=== PATIENT | male | born 1965 | race Caucasian/White ===

== ENCOUNTER 2022-01-31 17:18 | Emergency (ER) | payer OTHER, MEDICAID ==
[~2022-01-31] VITALS: Ht 175.3 cm; Wt 75.0 kg
[~2022-01-31 17:18] MED LIST: ATEN25TA PO; GLIM4TAB PO; LOSA50TA3 PO; OMEP20CA15 PO; SITA50TA PO
[2022-01-31 21:14] LABS: BASOPHILS # (AUTO) 0.1 X10'3 (0-0.2); BASOPHILS % (AUTO) 0.6 % (0-1); EOSINOPHILS % (AUTO) 0.3 % (0-6); HEMATOCRIT 39.1 % (42.0-52.0); HEMOGLOBIN 13.4 g/dl (14.0-17.9); LYMPHOCYTES # (AUTO) 2.3 X10'3 (1.1-4.8); LYMPHOCYTES % (AUTO) 13.3 % (21-51); MEAN CORPUSCULAR HEMOGLOBIN 30.5 PG (27.0-31.0); MEAN CORPUSCULAR HGB CONC 34.3 g/dL (33.0-36.5); MEAN CORPUSCULAR VOLUME 88.9 FL (78-98); MEAN PLATELET VOLUME 6.6 FL (7.4-10.4); MONOCYTES # (AUTO) 1.2 X10'3 (0-0.9); MONOCYTES % (AUTO) 7.2 % (2-12); NEUTROPHILS # (AUTO) 13.4 X10'3 (1.8-7.7); NEUTROPHILS % (AUTO) 78.6 % (42-75); PLATELET COUNT 422 X10'3 (140-440); RED BLOOD COUNT 4.39 X10'6 (4.70-6.10); RED CELL DISTRIBUTION WIDTH 13.7 % (11.5-14.5); WHITE BLOOD COUNT 17.1 X10'3 (4.5-11.0)
[2022-01-31] MEDS ORDERED: HYDROcodone/acetaminophen 10/325mg tab PO ONE (21:25)
[2022-01-31 21:30] LABS: ALANINE AMINOTRANSFERASE 14 U/L (12-78); ALBUMIN 3.6 G/DL (3.4-5.0); ALBUMIN/GLOBULIN RATIO 0.9 (1.1-1.5); ALKALINE PHOSPHATASE 78 IU/L (46-116); ANION GAP 11 (8-16); ASPARTATE AMINO TRANSFERASE 10 U/L (10-37); BILIRUBIN,TOTAL 0.8 MG/DL (0.1-1.0); BLOOD UREA NITROGEN 14 MG/DL (7-18); BUN/CREATININE RATIO 21.5 (5.4-32.0); CALCIUM 8.4 MG/DL (8.5-10.1); CHLORIDE 102 MMOL/L (99-107); CREATININE 0.65 MG/DL (0.60-1.10); GLUCOSE 127 MG/DL (70-104); POTASSIUM 3.2 MMOL/L (3.5-5.1); SODIUM 138 MMOL/L (135-145); TOTAL PROTEIN 7.4 G/DL (6.4-8.2); eGFR > 90 ML/MIN
[2022-01-31] MEDS ORDERED: TETanus/Pertussis (Acell)/Diphther VAC/PF (Tdap-Adult) 0.5ml syringe IMVAC ONE (21:35)
[2022-01-31] MEDS ORDERED: potassium Cl 20 mEq SR tablet PO ONE (21:50)
[2022-01-31] MEDS ORDERED: cephalexin 500mg capsule PO ONE (23:35)
[2022-01-31] MEDS ORDERED: HYDR-3965 PO (23:43)
[2022-01-31] MEDS ORDERED: CEPH-268 PO (23:43)
[2022-02-01 00:05] VITALS: BP 116/70
== END 2022-02-01 00:08 | disposition home or self-care (01) ==
LOC: ER 17:18
DX: L89.323 Pressure ulcer of left buttock, stage 3 (principal); L89.313 Pressure ulcer of right buttock, stage 3; E78.6 Lipoprotein deficiency; Z88.8 Allergy status to other drugs, medicaments and biological substances; Z79.899 Other long term (current) drug therapy; Z98.890 Other specified postprocedural states
CPT/HCPCS: 36415; 80053; 85025; 90715; 99284; A6222; A6223

== ENCOUNTER 2022-02-05 20:20 | Inpatient (IN) | payer OTHER, MEDICAID ==
[~2022-02-05] VITALS: Ht 175.3 cm; Wt 75.0 kg
[2022-02-05 18:00] VITALS: BP 142/77
[~2022-02-05 20:20] MED LIST changes: +CEPH-268 PO
[2022-02-05 21:13] LABS: BASOPHILS # (AUTO) 0.1 X10'3 (0-0.2); BASOPHILS % (AUTO) 0.5 % (0-1); EOSINOPHILS % (AUTO) 0.1 % (0-6); HEMATOCRIT 39.5 % (42.0-52.0); HEMOGLOBIN 13.3 g/dl (14.0-17.9); LYMPHOCYTES # (AUTO) 1.5 X10'3 (1.1-4.8); LYMPHOCYTES % (AUTO) 8.1 % (21-51); MEAN CORPUSCULAR HEMOGLOBIN 29.5 PG (27.0-31.0); MEAN CORPUSCULAR HGB CONC 33.6 g/dL (33.0-36.5); MEAN CORPUSCULAR VOLUME 87.7 FL (78-98); MEAN PLATELET VOLUME 6.7 FL (7.4-10.4); MONOCYTES # (AUTO) 1.7 X10'3 (0-0.9); MONOCYTES % (AUTO) 9.1 % (2-12); NEUTROPHILS # (AUTO) 15.1 X10'3 (1.8-7.7); NEUTROPHILS % (AUTO) 82.2 % (42-75); PLATELET COUNT 501 X10'3 (140-440); RED BLOOD COUNT 4.51 X10'6 (4.70-6.10); RED CELL DISTRIBUTION WIDTH 13.8 % (11.5-14.5); WHITE BLOOD COUNT 18.4 X10'3 (4.5-11.0)
[2022-02-05] MEDS ORDERED: acetaminophen 325mg tablet PO ONE (21:25)
[2022-02-05 21:30] LABS: ALANINE AMINOTRANSFERASE 12 U/L (12-78); ALBUMIN 2.8 G/DL (3.4-5.0); ALBUMIN/GLOBULIN RATIO 0.6 (1.1-1.5); ALKALINE PHOSPHATASE 95 IU/L (46-116); ANION GAP 14 (8-16); ASPARTATE AMINO TRANSFERASE 10 U/L (10-37); BILIRUBIN,TOTAL 0.9 MG/DL (0.1-1.0); BLOOD UREA NITROGEN 12 MG/DL (7-18); BUN/CREATININE RATIO 17.6 (5.4-32.0); CALCIUM 8.7 MG/DL (8.5-10.1); CHLORIDE 96 MMOL/L (99-107); CREATININE 0.68 MG/DL (0.60-1.10); GLUCOSE 153 MG/DL (70-104); SODIUM 133 MMOL/L (135-145); TOTAL CARBON DIOXIDE 23.1 MMOL/L (24-32); TOTAL PROTEIN 7.4 G/DL (6.4-8.2); eGFR > 90 ML/MIN
[2022-02-05] MEDS ORDERED: normal saline 1000ML IV soln IVB ONE ×2 (21:30)
[2022-02-05] MEDS ORDERED: vancomycin/NS 1 GM ADD-VANTAGE 250 ML IV ONE (21:30)
[2022-02-05 21:32] LABS: POTASSIUM 2.5 MMOL/L (3.5-5.1)
[2022-02-05] MEDS ORDERED: potassium Cl 20 mEq SR tablet PO ONE (21:35)
[2022-02-05] MEDS ORDERED: magnesium 2GM in 50ml NS 50 ML IV ONE (21:35)
[2022-02-05] MEDS ORDERED: potassium Cl 10 mEq/100mL bag IV ONE (21:35)
[2022-02-05 21:48] LABS: MAGNESIUM 1.9 MG/DL (1.5-2.4)
[2022-02-05] MEDS ORDERED: piperacillin/tazo 4.5gm/100ml 100 ML IV ONE (21:50)
[2022-02-05] MEDS ORDERED: iohexol 350MG/ML 100ml bottle IV ONE (22:14)
--- NOTE | 2022-02-05 23:42 | NUR ---
per admitting physician, patient will be straight cath to empty bladder and obtain urine sample.
[2022-02-06] VITALS (12 sets, daily range): BP systolic 129–171; BP diastolic 64–93
[2022-02-06 00:04] LABS: CLARITY,URINE CLEAR (Clear); COLOR,URINE YELLOW (Yellow); GLUCOSE, URINE >=1000 mg/dl (Neg); KETONES,URINE 40 mg/dl (Neg); LEUKOCYTE ESTERASE ,URINE NEGATIVE (Neg); NITRITES, URINE NEGATIVE (Neg); OCCULT BLOOD,URINE TRACE-INTACT (Neg); PROTEIN,URINE NEGATIVE (Neg)
[2022-02-06] MEDS ORDERED: magnesium 4gm in 100ml NS 100 ML IV PRN (00:05)
[2022-02-06] MEDS ORDERED: magnesium hydroxide 30ml (MOM) UD suspension PO PRN (00:05)
[2022-02-06] MEDS ORDERED: magnesium 2GM in 50ml NS 50 ML IV PRN (00:05)
[2022-02-06] MEDS ORDERED: morphine 2 MG/ML inj. syringe IV PRN ×3 (00:05→20:15)
[2022-02-06] MEDS ORDERED: magnesium Cl slow-release 64mg tablet PO PRN (00:05)
[2022-02-06] MEDS ORDERED: acetaminophen 325mg tablet PO PRN (00:05)
[2022-02-06] MEDS ORDERED: POTASSIUM BICARB 20meq eff tab 20 MEQ TABLET.EFF PO PRN (00:05)
[2022-02-06] MEDS ORDERED: mag hydrox/Alum hydrox/simeth 30ml oral suspension PO PRN (00:05)
[2022-02-06 00:11] LABS: UA COLLECTION TYPE STRAIGHT CATH
[2022-02-06 00:12] LABS: BACTERIA,URINE FEW /HPF (Neg); RBC,URINE 0-2 /HPF (0-2); SQUAMOUS EPITHELIAL CELL,UR FEW /LPF (FEW); WBC,URINE NONE SEEN /HPF (0-4)
[2022-02-06 00:15] LABS: URINE AMPHETAMINE SCREEN NEGATIVE (Neg); URINE BARBITUATE SCREEN NEGATIVE (Neg); URINE BENZODIAZEPINES SCREEN NEGATIVE (Neg); URINE CANNABINOID SCREEN POSITIVE (Neg); URINE COCAINE SCREEN NEGATIVE (Neg); URINE METHADONE SCREEN NEGATIVE (Neg); URINE OPIATE SCREEN NEGATIVE (Neg); URINE PHENCYCLIDINE SCREEN NEGATIVE (Neg)
[2022-02-06] MEDS: piperacillin/tazo 3.375gm/50ml 50 ML IV SCH ×4 (00:16→23:42)
[2022-02-06] MEDS: normal saline 1000ml 1,000 ML IV SCH ×4 (02:17→23:42)
[2022-02-06 03:08] LABS: MAGNESIUM 2.1 MG/DL (1.5-2.4)
[2022-02-06 03:17] LABS: POTASSIUM 2.5 MMOL/L (3.5-5.1)
[2022-02-06] MEDS: POTASSIUM BICARB 20meq eff tab 20 MEQ TABLET.EFF PO PRN ×2 (04:05→09:50)
[2022-02-06] MEDS: potassium CL 10mEq/100ml bag 100 ML IV PRN ×4 (04:06→23:42)
--- NOTE | 2022-02-06 05:07 | NUR ---
PHOTO TAKEN OF SACRAL WOUND AND PLACED IN CHART. WOUND CARE CONSULT ORDERED.
--- NOTE | 2022-02-06 06:18 | NUR ---
PATIENT SLEEPING WITH NO SIGNS OF DISTRESS NOTED, SNORING, ALL SAFETY MEASURES IN PLACE, WILL CONTINUE TO MONITOR.
[2022-02-06] MEDS ORDERED: BACL20TA PO (07:17)
[2022-02-06] MEDS ORDERED: ROSU5TAB12 PO (07:17)
[2022-02-06] MEDS ORDERED: FLO0.4C PO (07:17)
[2022-02-06] MEDS ORDERED: NAPR-996 PO (07:17)
[2022-02-06] MEDS: docusate sod 100mg capsule PO SCH ×2 (07:18→20:00)
[2022-02-06] MEDS ORDERED: CEPH500C2 PO (07:18)
[2022-02-06] MEDS: heparin, porcine 5000 units/ml vial SQ SCH ×2 (07:22→20:00)
[2022-02-06] MEDS ORDERED: vancomycin/NS 1 GM ADD-VANTAGE 250 ML IV SCH (08:00)
--- NOTE | 2022-02-06 09:37 | NUR ---
Diabetes consult: Pt w/ hx of DM A1c 6.8 per EMR, well controlled DM ed not indicated at this time. Pt admitted w/ 2cm unstageable pressure injury to sacrum that has been there for about 9 months per MD note. Pt currently NPO, recommend advancing to Regular vs Carb control once appropriate. Pt could benefit from Brian smoothies to assist w/ wound healing once diet advanced. Will continue to monitor. Recs; 1. Advance to Regular vs Carb control diet once appropriate 2. Biran Smoothies BID once diet advanced 3. Bowel care per rx 4. Scaled wts Addendum: 02/06/22 at [address] Amended: Links added.
[2022-02-06] MEDS: K and/or MAG REPLACEMENT MC SCH ×2 (09:50→20:00)
[2022-02-06] MEDS: ondansetron/PF 4mg/2ml inj IV PRN ×2 (10:37→19:38)
--- NOTE | 2022-02-06 12:24 | NUR ---
PRESSURE ULCER EDUCATION: DEFINITION: A pressure ulcer is an area of skin that breaks down when you stay in one position too long. The constant pressure against the skin reduces the blood flow to that area and the affected tissue dies. CAUSES: "Being bedridden or in a wheelchair "Fragile skin "Having a chronic condition, such as diabetes or vascular disease "Inability to move certain parts of your body without assistance "Older age "Incontinence of urine or stool SYMPTOMS: "A reddened area that DOES NOT turn white when pressed on - this can be the beginning of a pressure ulcer "A blister, deep sore or a crater - these can be advanced pressure ulcers FIRST AID: "Relieve the pressure on this area "Keep the area clean and dry "Call your primary doctor if you see any of the above symptoms "DO NOT massage the area "DO NOT use a donut shaped or ring shaped pillow- these actually interfere with the blood flow and cause complications PREVENTION: "Check for pressure ulcers everyday "Change position at least every two hours to relieve pressure "Use items that help relieve pressure- pillows, sheepskin, foam padding, and powders. "Keep skin clean and dry "Eat healthy well balanced meals "Exercise daily IF YOU SEE ANY OF THESE SYMPTOMS WHILE IN THE HOSPITAL - TELL YOUR NURSE IMMEDIATELY. IF YOU SEE ANY OF THESE SYMPTOMS WHILE AT HOME OR HAVE ANY QUESTIONS OR CONCERNS ABOUT PRESSURE ULCERS - CALL YOUR PRIMARY DOCTOR IMMEDIATELY. Addendum: 02/06/22 at 1225 by Thalia Alvarez RN Amended: Links added.
--- NOTE | 2022-02-06 12:42 | NUR ---
Specialty bed ordered and notified floor. Addendum: 02/06/22 at 1245 by Thalia Alvarez RN Amended: Links added.
[2022-02-06 14:14] LABS: BASOPHILS # (AUTO) 0.1 X10'3 (0-0.2); BASOPHILS % (AUTO) 0.5 % (0-1); EOSINOPHILS % (AUTO) 0.2 % (0-6); HEMATOCRIT 37.2 % (42.0-52.0); HEMOGLOBIN 12.5 g/dl (14.0-17.9); LYMPHOCYTES # (AUTO) 1.4 X10'3 (1.1-4.8); LYMPHOCYTES % (AUTO) 7.3 % (21-51); MEAN CORPUSCULAR HGB CONC 33.7 g/dL (33.0-36.5); MEAN CORPUSCULAR VOLUME 88.9 FL (78-98); MEAN PLATELET VOLUME 7.2 FL (7.4-10.4); MONOCYTES # (AUTO) 1.4 X10'3 (0-0.9); MONOCYTES % (AUTO) 7.3 % (2-12); NEUTROPHILS % (AUTO) 84.7 % (42-75); PLATELET COUNT 525 X10'3 (140-440); RED BLOOD COUNT 4.18 X10'6 (4.70-6.10); RED CELL DISTRIBUTION WIDTH 14.2 % (11.5-14.5); WHITE BLOOD COUNT 18.9 X10'3 (4.5-11.0)
[2022-02-06 14:27] LABS: CHLORIDE 106 MMOL/L (99-107); GLUCOSE 116 MG/DL (70-104); SODIUM 144 MMOL/L (135-145)
[2022-02-06 14:28] LABS: ALBUMIN 2.5 G/DL (3.4-5.0); ANION GAP 18 (8-16); BLOOD UREA NITROGEN 9 MG/DL (7-18); CALCIUM 7.9 MG/DL (8.5-10.1); TOTAL CARBON DIOXIDE 19.7 MMOL/L (24-32)
[2022-02-06 14:30] LABS: eGFR > 90 ML/MIN
--- NOTE | 2022-02-06 18:15 | NUR ---
Patient in room PCU 3021. I have received report from [place] RN and had the opportunity to ask questions and assume patient care.
--- NOTE | 2022-02-06 19:09 | NUR ---
pt to OR
[2022-02-06] MEDS: VANCOmycin 1250MG/NS 250ml Bag 250 ML IV SCH (20:00)
[2022-02-06] MEDS ORDERED: midazolam 1 mg/ML 2ml injection ONE (20:05)
[2022-02-06] MEDS ORDERED: fentaNYL /PF 50mcg/ml 5ml ampule ONE (20:05)
[2022-02-06] MEDS ORDERED: propofol inj 20 ML IV ONE (20:07)
[2022-02-06] MEDS ORDERED: rocuronium 10mg/ml inj IV ONE ×2 (20:07)
[2022-02-06] MEDS ORDERED: LIDOcaine 2% (20mg/ml) 5ml vial ONE (20:08)
[2022-02-06] MEDS ORDERED: meperidine/PF 25mg/ml syringe IV PRN ×2 (20:15)
[2022-02-06] MEDS ORDERED: morphine 4 MG/ML inj SYRINge IV PRN (20:15)
[2022-02-06] MEDS ORDERED: ringers solution, lacted 1,000 ML IV SCH (20:15)
[2022-02-06] MEDS ORDERED: ondansetron/PF 4mg/2ml inj IV PRN (20:15)
[2022-02-06] MEDS ORDERED: proCHLORperazine 10 MG/2 ml inj IV PRN (20:15)
[2022-02-06] MEDS ORDERED: sevoflurane 250ml liquid IH ONE (20:17)
[2022-02-06] MEDS ORDERED: sugammadex 200mg/2ml injection IV ONE (22:02)
[2022-02-06] MEDS ORDERED: naloxone 0.4 mg/ml inj IV PRN (22:10)
[2022-02-06] MEDS ORDERED: ondansetron/PF 4mg/2ml inj ONE (22:12)
--- NOTE | 2022-02-06 22:18 | NUR ---
Received from OR via SURGICAL BED , accompanied by Anesthesiologist DARBY and report given by Anesthesiolgist. PATIENT WITH DENIS CATHETER YELLOW URINE PRESENT. COARSE COUGH BUT WITH 100% SATURATIONS.ABDOMINAL DRESSING HAS BLOOD PRESENT TO DRESSING TO ABDOMEN BUT IS CONTAINEED WITHIN DRESSING. COLOSTOMY TO LEFT OF ABDOMEN IS CDI. STOMA PINK. NO LEAKS. Addendum: 02/06/22 at 2226 by Chico Chin RN, RN Amended: Links added.
[2022-02-06] MEDS: meperidine/PF 25mg/ml syringe IV PRN ×2 (22:31→22:51)
[2022-02-06 22:47] LABS: ISTAT ANION GAP 17 (8-12); ISTAT BUN 5 mg/dL (7-18); ISTAT CL 107 mmol/L (99-107); ISTAT CREATININE 0.3 mg/dL (0.8-1.3); ISTAT GLUCOSE 113 mg/dL (70-105); ISTAT HGB 13.3 g/dl (14.0-18.0); ISTAT Hct 39 %PCV (42-52); ISTAT IONIZED CALCIUM 1.17 mmol/L (1.03-1.32); ISTAT K 3.3 mmol/L (3.5-5.1); ISTAT NA 141 mmol/L (135-145); ISTAT TOTAL CO2 17 mmol/L (24-32); ISTAT eGFR > 90 ML/MIN; POC BUN/CREATININE RATIO 16.7 (5.4-32.0)
--- NOTE | 2022-02-06 23:08 | NUR ---
ALL CRITERIA FOR DC TO THE FLOOR HAS BEEN ACHIEVED. PAIN AT A TOLERABLE LEVEL AT TIME OF TRANSFER. VSS. DRESSING STILL IT WAS UPON ARRIVAL FROM OR. SHOWED THIS TO ONCOMING SPRING WINDER WHO WAS PRESENT TO ASSIST IN SET UP AND TO LOOK AT WOUNDS TO ABDOMEN, SACRUM AND NEW COLOSTOMY. ALL WNL. CARE TURNED OVER TO RN. Addendum: 02/06/22 at 9180 by Chico Chin RN, RN Amended: Links added.
--- NOTE | 2022-02-06 23:10 | NUR ---
post op vitals started, suction hooked up to wall, pt resting, eyes closed no signs of distress. frq monitoring
[2022-02-07] VITALS (7 sets, daily range): BP systolic 137–170; BP diastolic 68–92
[2022-02-07] MEDS: HYDROmorphone inj. 0.5 MG/0.5 ML DISP.SYRIN IV PRN ×2 (02:56→09:07)
--- NOTE | 2022-02-07 06:45 | NUR ---
Problems reprioritized. Patient report given, questions answered & plan of care reviewed with [place] RN.
[2022-02-07] MEDS: docusate sod 100mg capsule PO SCH ×2 (08:00→20:00)
[2022-02-07] MEDS: K and/or MAG REPLACEMENT MC SCH ×2 (08:00→20:00)
[2022-02-07] MEDS: heparin, porcine 5000 units/ml vial SQ SCH ×2 (08:32→22:11)
[2022-02-07] MEDS: VANCOmycin 1250MG/NS 250ml Bag 250 ML IV SCH (08:32)
[2022-02-07] MEDS ORDERED: baclofen 10mg tablet PO PRN (10:25)
[2022-02-07 11:00] LABS: BASOPHILS % (AUTO) 0.2 % (0-1); EOSINOPHILS % (AUTO) 0 % (0-6); HEMATOCRIT 39.9 % (42.0-52.0); HEMOGLOBIN 12.8 g/dl (14.0-17.9); LYMPHOCYTES # (AUTO) 1.1 X10'3 (1.1-4.8); LYMPHOCYTES % (AUTO) 5.5 % (21-51); MEAN CORPUSCULAR HEMOGLOBIN 29.2 PG (27.0-31.0); MEAN CORPUSCULAR HGB CONC 32.2 g/dL (33.0-36.5); MEAN CORPUSCULAR VOLUME 90.8 FL (78-98); MEAN PLATELET VOLUME 6.8 FL (7.4-10.4); MONOCYTES # (AUTO) 1.4 X10'3 (0-0.9); MONOCYTES % (AUTO) 6.7 % (2-12); NEUTROPHILS % (AUTO) 87.6 % (42-75); PLATELET COUNT 573 X10'3 (140-440); RED BLOOD COUNT 4.39 X10'6 (4.70-6.10); RED CELL DISTRIBUTION WIDTH 14.7 % (11.5-14.5); WHITE BLOOD COUNT 20.5 X10'3 (4.5-11.0)
[2022-02-07] MEDS: pantoprazole 40mg Tablet.DR PO SCH (11:15)
[2022-02-07 11:23] LABS: ALANINE AMINOTRANSFERASE 11 U/L (12-78); ALBUMIN 2.3 G/DL (3.4-5.0); ALBUMIN/GLOBULIN RATIO 0.6 (1.1-1.5); ALKALINE PHOSPHATASE 82 IU/L (46-116); ANION GAP 24 (8-16); ASPARTATE AMINO TRANSFERASE 15 U/L (10-37); BILIRUBIN,TOTAL 0.5 MG/DL (0.1-1.0); BLOOD UREA NITROGEN 12 MG/DL (7-18); BUN/CREATININE RATIO 12.9 (5.4-32.0); CALCIUM 8.1 MG/DL (8.5-10.1); CHLORIDE 108 MMOL/L (99-107); CREATININE 0.93 MG/DL (0.60-1.10); GLUCOSE 133 MG/DL (70-104); MAGNESIUM 1.9 MG/DL (1.5-2.4); POTASSIUM 3.7 MMOL/L (3.5-5.1); SODIUM 141 MMOL/L (135-145); TOTAL PROTEIN 6.4 G/DL (6.4-8.2); eGFR 84 ML/MIN
[2022-02-07 11:28] LABS: TOTAL CARBON DIOXIDE 9.4 MMOL/L (24-32)
[2022-02-07] MEDS: piperacillin/tazo 3.375gm/50ml 50 ML IV SCH ×2 (12:56→16:42)
[2022-02-07] MEDS: sodium bicarbonate (8.4%) inj. 150 MEQ in dextrose 5%-water 1,000 ML IV SCH (13:35)
[2022-02-07] MEDS ORDERED: losartan 50mg tablet PO ONE (15:15)
[2022-02-07] MEDS ORDERED: atenolol 25mg tablet PO ONE (15:15)
[2022-02-07] MEDS: HYDROcodone/acetaminophen 10/325mg tab PO PRN (17:27)
[2022-02-07] MEDS ORDERED: naproxen 500mg tablet PO SCH (20:00)
[2022-02-07] MEDS: vancomycin/NS 1 GM ADD-VANTAGE 250 ML IV SCH (21:21)
[2022-02-07] MEDS: tamsulosin 0.4mg capsule PO SCH (22:09)
[2022-02-07] MEDS: baclofen 10mg tablet PO SCH (22:10)
[2022-02-08] MEDS: piperacillin/tazo 3.375gm/50ml 50 ML IV SCH (00:15)
[2022-02-08 02:00] VITALS: BP 141/77
--- NOTE | 2022-02-08 05:45 | NUR ---
REVIEWED AUTO REBUILDER ASSESSMENT AND IN AGREEMENT.
[2022-02-08 06:00] VITALS: BP 141/70
[2022-02-08 06:58] LABS: BASOPHILS # (AUTO) 0.1 X10'3 (0-0.2); BASOPHILS % (AUTO) 0.3 % (0-1); EOSINOPHILS # (AUTO) 0.1 X10'3 (0-0.9); EOSINOPHILS % (AUTO) 0.5 % (0-6); HEMATOCRIT 40.3 % (42.0-52.0); HEMOGLOBIN 13.2 g/dl (14.0-17.9); LYMPHOCYTES # (AUTO) 1.3 X10'3 (1.1-4.8); LYMPHOCYTES % (AUTO) 7.3 % (21-51); MEAN CORPUSCULAR HEMOGLOBIN 29.5 PG (27.0-31.0); MEAN CORPUSCULAR HGB CONC 32.6 g/dL (33.0-36.5); MEAN CORPUSCULAR VOLUME 90.3 FL (78-98); MEAN PLATELET VOLUME 7.3 FL (7.4-10.4); MONOCYTES # (AUTO) 1.6 X10'3 (0-0.9); MONOCYTES % (AUTO) 8.8 % (2-12); NEUTROPHILS # (AUTO) 15.1 X10'3 (1.8-7.7); NEUTROPHILS % (AUTO) 83.1 % (42-75); PLATELET COUNT 565 X10'3 (140-440); RED BLOOD COUNT 4.47 X10'6 (4.70-6.10); RED CELL DISTRIBUTION WIDTH 14.1 % (11.5-14.5); WHITE BLOOD COUNT 18.1 X10'3 (4.5-11.0)
[2022-02-08 07:11] LABS: ALANINE AMINOTRANSFERASE 10 U/L (12-78); ALBUMIN 2.1 G/DL (3.4-5.0); ALBUMIN/GLOBULIN RATIO 0.5 (1.1-1.5); ALKALINE PHOSPHATASE 78 IU/L (46-116); ANION GAP 19 (8-16); ASPARTATE AMINO TRANSFERASE 11 U/L (10-37); BILIRUBIN,TOTAL 0.6 MG/DL (0.1-1.0); BLOOD UREA NITROGEN 12 MG/DL (7-18); BUN/CREATININE RATIO 14.3 (5.4-32.0); CALCIUM 8.3 MG/DL (8.5-10.1); CHLORIDE 105 MMOL/L (99-107); CREATININE 0.84 MG/DL (0.60-1.10); GLUCOSE 159 MG/DL (70-104); POTASSIUM 3.2 MMOL/L (3.5-5.1); SODIUM 139 MMOL/L (135-145); TOTAL CARBON DIOXIDE 15.2 MMOL/L (24-32); TOTAL PROTEIN 6.2 G/DL (6.4-8.2); eGFR > 90 ML/MIN
[2022-02-08] MEDS: K and/or MAG REPLACEMENT MC SCH ×2 (08:00→20:00)
[2022-02-08] MEDS: vancomycin/NS 1 GM ADD-VANTAGE 250 ML IV SCH (08:43)
[2022-02-08] MEDS: pantoprazole 40mg Tablet.DR PO SCH (08:44)
[2022-02-08] MEDS: atorvastatin 20mg tablet PO SCH (08:44)
[2022-02-08] MEDS: baclofen 10mg tablet PO SCH ×2 (08:44→21:24)
[2022-02-08] MEDS: docusate sod 100mg capsule PO SCH ×2 (08:44→21:24)
[2022-02-08] MEDS: losartan 50mg tablet PO SCH (08:44)
[2022-02-08] MEDS: atenolol 25mg tablet PO SCH (08:44)
[2022-02-08] MEDS: ondansetron/PF 4mg/2ml inj IV PRN (08:45)
[2022-02-08] MEDS: linagliptin 5mg tablet PO SCH (08:45)
[2022-02-08] MEDS: heparin, porcine 5000 units/ml vial SQ SCH ×2 (08:45→21:22)
[2022-02-08 11:00] VITALS: BP 136/74
[2022-02-08] MEDS: sodium bicarbonate (8.4%) inj. 150 MEQ in dextrose 5%-water 1,000 ML IV SCH ×2 (11:55→12:00)
--- NOTE | 2022-02-08 14:22 | NUR ---
OSTOMY FACTS: Almost everyone has know of, or met, businessmen, entertainers, athletes, and people from all walks of life who have an ostomy. Ostomates (a person that has an ostomy) can ski, ride horses, bowl, and get healthy exercise in countless ways. Your usual activities of daily living can be resumed as soon as you are able. Gradually you will be able to wear the clothes worn before surgery. With modern pouches, nothing is noticeable under your clothing. It may be difficult at first to believe that an intimate relationship can be possible when one's body has been disfigured by surgery. This is not true. Love, fortunately, is not easily destroyed when it is based on genuine appreciation of a person as a thinking, feeling, reacting human being. AN OSTOMY IS NOT AN IMPAIRMENT!! DEFINITIONS: 1.OSTOMY: An opening that is created by a surgical procedure. The opening is called a "stoma". 2.STOMA: A surgical opening in the abdomen (belly) where intestine is brought through the abdominal wall and connected at the skin level. A stoma is shiny, wet and at first is dark purple but eventually turns pink, similar to the inside lining of your mouth. 3.COLON: A portion of the large bowel. 4.COLOSTOMY: A fecal diversion with an opening, (stoma) created anywhere along the colon. Making a connection between the colon and the abdominal wall. 5.ILLEOSTOMY: A fecal diversion with an opening, (stoma) created in the small intestine. Making a connection between the small intestine and the abdominal wall. 6.UROSTOMY: A urinary diversion with the ureters connected to a segment of the small bowel and one end is brought out and connected to the abdominal wall, creating a stoma. SHAPES and SIZES: "The stoma is usually round or oval. "It is anywhere from a dime to half dollar in size. "A stoma reaches its permanent size 6-8 weeks after surgery. PRODUCTS: 1.POUCH or APPLIANCE: An external device to contain stool or urine output and protect the skin around the stoma. It can be a one piece pouch or two pieces (a pouch and a wafer). 2.BARRIER: Substance that is used to protect the skin around the stoma from drainage and adhesive. 3.SKIN PREP or SEALANT: Product applied to the skin to reduce injury from moisture, drainage, or repeated pouch removal. Available in spray or wipes. 4.CLOSURE or CLAMP: A device used to close the bottom of a drainable pouch. 5.BRIDGE or NILESH: A piece of plastic placed under a loop of bowel on the skins surface, to secure the bowel in place while the skin heals. POUCH CHANGE PROCEEDURE: 1.Assemble all the supplies "1 or 2 piece appliance "Ostomy paste (if needed) "Ostomy powder (if needed) "Skin prep wipes ( not recommended with coloplast products) "Moist wash cloth or cotton balls 2.Remove plastic center and paper backing from pouch. If pouch or wafer is not precut, use the sizing guide, or plastic backing from pouch to make a pattern. Do this by placing the paper over the stoma and trace it, or draw a pattern. Cut the wafer to fit and set it aside. 3.Remove old pouch by lifting up on tape while pressing skin down away from the tape. If there is a clip on your pouch, remove it and save it. 4.Clean skin or stoma with moistened wash cloth or cotton balls. Place a clean cotton ball over stoma hole to catch any drainage. Let skin dry. 5.For grooves or uneven areas in the skin- apply ostomy paste and sprinkle with ostomy powder, then gently shape the past so the area around the stoma is smooth and as flat as possible. Wipe off or blow away excess. Blot powder with skin prep wipe (DO NOT wipe powder). Let dry until no longer sticky. 6.For irritated or reddened skin- sprinkle ostomy powder on red or irritated area. Wipe off or blow away excess. Blot powder with skin prep wipe (DO NOT wipe powder). Let dry until no longer sticky. 7.Apply skin prep wipe to skin to which the pouch and tape will adhere. Let dry until no longer sticky. 8.If you have a one piece appliance- apply pouch so it is centered around the stoma. No skin should be exposed to stool. All skin should be covered by paste or pouch. 9.If you have a two piece appliance- Apply the wafer as described above, then snap or stick pouch onto wafer. Check to make sure wafer and pouch are securely connected. 10.Place clip on bottom of pouch. 11.Empty pouch when 1/3 full. OSTOMY SKIN CARE: "Good health care and nutrition are essential for healthy skin. "Usually a correct pouch size will prevent skin breakdown. "Use warm water and soap for skin cleansing. "Do not use creams or oil based products on skin around the stoma. This will prevent the appliance from sticking. "Use skin prep around the stoma. IT CAN TAKE 24 HOURS TO SEVERAL DAYS FOR SKIN TO HEAL. IF IT IS NOT RESOLVING, OR GETTING WORSE, CALL YOUR PRIMARY CARE DOCTOR. Addendum: 02/08/22 at 1422 by Rosalee Monte LVN Amended: Links added.
[2022-02-08 15:00] VITALS: BP 130/58
[2022-02-08] MEDS: potassium CL 10mEq/100ml bag 100 ML IV PRN ×3 (15:18→21:25)
[2022-02-08 18:00] VITALS: BP 153/76
--- NOTE | 2022-02-08 18:00 | NUR ---
Call pharmacy who advised to skip the Zozyn that was not given at 1600 and just give pt Zozyn at 0000.
[2022-02-08] MEDS: tamsulosin 0.4mg capsule PO SCH (21:23)
[2022-02-08 22:00] VITALS: BP 125/69
[2022-02-09] MEDS: piperacillin/tazo 4.5gm/100ml 100 ML IV SCH ×4 (01:14→16:00)
[2022-02-09] MEDS: sodium bicarbonate (8.4%) inj. 150 MEQ in dextrose 5%-water 1,000 ML IV SCH (01:25)
[2022-02-09] MEDS ORDERED: magnesium Cl slow-release 64mg tablet PO PRN (01:35)
[2022-02-09] MEDS ORDERED: magnesium 2GM in 50ml NS 50 ML IV PRN (01:35)
[2022-02-09] MEDS ORDERED: potassium CL 10mEq/100ml bag 100 ML IV PRN (01:35)
[2022-02-09] MEDS ORDERED: POTASSIUM BICARB 20meq eff tab 20 MEQ TABLET.EFF PO PRN ×2 (01:35)
[2022-02-09] MEDS ORDERED: magnesium 4gm in 100ml NS 100 ML IV PRN (01:35)
[2022-02-09 02:00] VITALS: BP 141/62
[2022-02-09 06:00] VITALS: BP 134/69
--- NOTE | 2022-02-09 06:51 | NUR ---
Problems reprioritized. Patient report given, questions answered & plan of care reviewed with Rosalee BERNABE.
[2022-02-09] MEDS ORDERED: VANCOMYCIN LEVEL IV ONE (07:30)
[2022-02-09 07:42] LABS: BASOPHILS # (AUTO) 0.1 X10'3 (0-0.2); EOSINOPHILS # (AUTO) 0.2 X10'3 (0-0.9); HEMOGLOBIN 13.9 g/dl (14.0-17.9); MONOCYTES # (AUTO) 1.3 X10'3 (0-0.9)
[2022-02-09 07:44] LABS: BASOPHILS % (AUTO) 0.7 % (0-1); EOSINOPHILS % (AUTO) 1.2 % (0-6); HEMATOCRIT 42.1 % (42.0-52.0); LYMPHOCYTES # (AUTO) 1.5 X10'3 (1.1-4.8); MEAN CORPUSCULAR HEMOGLOBIN 29.5 PG (27.0-31.0); MEAN CORPUSCULAR VOLUME 89.4 FL (78-98); MEAN PLATELET VOLUME 7.6 FL (7.4-10.4); MONOCYTES % (AUTO) 8.5 % (2-12); NEUTROPHILS # (AUTO) 12.2 X10'3 (1.8-7.7); NEUTROPHILS % (AUTO) 79.6 % (42-75); PLATELET COUNT 529 X10'3 (140-440); RED BLOOD COUNT 4.71 X10'6 (4.70-6.10); RED CELL DISTRIBUTION WIDTH 14.2 % (11.5-14.5); WHITE BLOOD COUNT 15.3 X10'3 (4.5-11.0)
[2022-02-09 07:56] LABS: ALANINE AMINOTRANSFERASE 12 U/L (12-78); ALBUMIN 2.1 G/DL (3.4-5.0); ALBUMIN/GLOBULIN RATIO 0.5 (1.1-1.5); ALKALINE PHOSPHATASE 68 IU/L (46-116); ANION GAP 13 (8-16); ASPARTATE AMINO TRANSFERASE 17 U/L (10-37); BILIRUBIN,TOTAL 0.6 MG/DL (0.1-1.0); BLOOD UREA NITROGEN 9 MG/DL (7-18); BUN/CREATININE RATIO 13.8 (5.4-32.0); CALCIUM 8.3 MG/DL (8.5-10.1); CHLORIDE 103 MMOL/L (99-107); CREATININE 0.65 MG/DL (0.60-1.10); GLUCOSE 199 MG/DL (70-104); MAGNESIUM 2.1 MG/DL (1.5-2.4); POTASSIUM 3.8 MMOL/L (3.5-5.1); SODIUM 142 MMOL/L (135-145); TOTAL CARBON DIOXIDE 25.7 MMOL/L (24-32); TOTAL PROTEIN 6.4 G/DL (6.4-8.2); eGFR > 90 ML/MIN
[2022-02-09] MEDS: K and/or MAG REPLACEMENT MC SCH ×4 (08:00→20:00)
--- NOTE | 2022-02-09 10:05 | NUR ---
Reassessment: Pt now s/p sacral wound debridement and colostomy formation per EMR. Advanced to Carb control diet w/ 0-25% intake of meals. Recommend changing to Low fiber diet given recent bowel surgery. Will also recommend Brian Smoothies to assist w/ wound healing. Will continue to follow closely. Recs; 1. Change to Low fiber diet 2. Brian Smoothies BID; pending MD verification 3. Bowel care per rx 4. Scaled wts 5. Colostomy ed once pt appropriate. Addendum: 02/09/22 at [address] Amended: Links added.
--- NOTE | 2022-02-09 10:30 | NUR ---
promotional table spacer PAGER ID: [phone] MESSAGE: SRINIVASA Turk, [id number], Pt 3021, Angeli, BG 209, please order hyperglycemic protocol, TY
[2022-02-09] MEDS: baclofen 10mg tablet PO SCH ×2 (10:40→19:39)
[2022-02-09] MEDS: pantoprazole 40mg Tablet.DR PO SCH (10:40)
[2022-02-09] MEDS: losartan 50mg tablet PO SCH (10:40)
[2022-02-09] MEDS: atenolol 25mg tablet PO SCH (10:40)
[2022-02-09] MEDS: tamsulosin 0.4mg capsule PO SCH (10:41)
[2022-02-09] MEDS: docusate sod 100mg capsule PO SCH ×2 (10:41→19:39)
[2022-02-09] MEDS: atorvastatin 20mg tablet PO SCH (10:41)
[2022-02-09] MEDS: heparin, porcine 5000 units/ml vial SQ SCH ×2 (10:41→19:39)
[2022-02-09] MEDS: linagliptin 5mg tablet PO SCH (10:48)
[2022-02-09 11:00] VITALS: BP 142/77
--- NOTE | 2022-02-09 12:42 | NUR ---
PAGER ID: [phone] MESSAGE: SRINIVASA Turk,[id number], 3021, BG 223, NEEDS Insulin, PLEASE ORDER Hypoglycemic protocol!
[2022-02-09] MEDS: normal saline 1000ml 1,000 ML IV SCH (13:25)
--- NOTE | 2022-02-09 13:45 | NUR ---
PAGER ID: [phone] MESSAGE: [id number] needs insulin! glucose>200 x 3, please order protocol! Rosalee, [phone], thank you Addendum: 02/09/22 at 1351 by Rosalee Ivey RN Spoke with Dr Gallagher, blood glucose should come down with change of IV fluids, check glucose with dinner, if >200, then place the order for hyperglycemic protocol
[2022-02-09 15:00] VITALS: BP 131/64
[2022-02-09] MEDS: HYDROmorphone inj. 0.5 MG/0.5 ML DISP.SYRIN IV PRN ×2 (15:16→19:30)
[2022-02-09] MEDS ORDERED: glucagon, human recombinant 1mg kit SUBCUT PRN (16:30)
[2022-02-09] MEDS ORDERED: MESSAGE TO PHARMACY PO ONE (16:30)
[2022-02-09] MEDS ORDERED: DEXTROSE 15 GM of carb/4 tabs (each vial/BOTTLE has 4 tablets) PO PRN ×2 (16:30)
[2022-02-09] MEDS ORDERED: dextrose 50%-water 50ml dispensing syringe IV PRN ×2 (16:30)
[2022-02-09] MEDS: JUVEN Smoothie Arginine/Glut./Ca2+Bmb (Juven 19.3pkt) 240ml cup PO SCH (17:30)
[2022-02-09 18:00] VITALS: BP 130/68
[2022-02-09] MEDS: insulin Lispro (HumaLOG) vial - multi-dose SQ SCH (19:38)
[2022-02-09 20:00] VITALS: BP 112/52
[2022-02-09] MEDS: insulin glargine (Lantus) pen - multi-dose SQ SCH (22:30)
[2022-02-10] MEDS: normal saline 1000ml 1,000 ML IV SCH ×2 (00:10→15:43)
[2022-02-10] MEDS: piperacillin/tazo 4.5gm/100ml 100 ML IV SCH ×3 (00:13→16:46)
[2022-02-10 02:00] VITALS: BP 114/54
[2022-02-10] MEDS: HYDROmorphone inj. 0.5 MG/0.5 ML DISP.SYRIN IV PRN ×3 (04:57→21:02)
--- NOTE | 2022-02-10 05:47 | NUR ---
AGREE WITH CARD PUNCHER PHYSICAL ASSESSMENT CHARTED
--- NOTE | 2022-02-10 07:07 | NUR ---
Patient in room PCU 3021. I have received report from JOAN MERIDA and had the opportunity to ask questions and assume patient care.
[2022-02-10] MEDS: JUVEN Smoothie Arginine/Glut./Ca2+Bmb (Juven 19.3pkt) 240ml cup PO SCH ×2 (07:30→18:30)
[2022-02-10 07:31] LABS: BASOPHILS # (AUTO) 0.1 X10'3 (0-0.2); EOSINOPHILS # (AUTO) 0.2 X10'3 (0-0.9); EOSINOPHILS % (AUTO) 1.6 % (0-6); HEMATOCRIT 36.7 % (42.0-52.0); HEMOGLOBIN 12.1 g/dl (14.0-17.9); LYMPHOCYTES # (AUTO) 1.6 X10'3 (1.1-4.8); LYMPHOCYTES % (AUTO) 13.6 % (21-51); MEAN CORPUSCULAR HEMOGLOBIN 29.3 PG (27.0-31.0); MEAN CORPUSCULAR VOLUME 88.8 FL (78-98); MEAN PLATELET VOLUME 7.1 FL (7.4-10.4); MONOCYTES # (AUTO) 1.2 X10'3 (0-0.9); MONOCYTES % (AUTO) 10.1 % (2-12); NEUTROPHILS # (AUTO) 8.5 X10'3 (1.8-7.7); NEUTROPHILS % (AUTO) 73.7 % (42-75); PLATELET COUNT 506 X10'3 (140-440); RED BLOOD COUNT 4.13 X10'6 (4.70-6.10); RED CELL DISTRIBUTION WIDTH 13.7 % (11.5-14.5); WHITE BLOOD COUNT 11.5 X10'3 (4.5-11.0)
[2022-02-10 07:33] LABS: ALANINE AMINOTRANSFERASE 13 U/L (12-78); ALBUMIN/GLOBULIN RATIO 0.5 (1.1-1.5); ALKALINE PHOSPHATASE 56 IU/L (46-116); ANION GAP 10 (8-16); ASPARTATE AMINO TRANSFERASE 14 U/L (10-37); BILIRUBIN,TOTAL 0.5 MG/DL (0.1-1.0); BLOOD UREA NITROGEN 10 MG/DL (7-18); BUN/CREATININE RATIO 16.4 (5.4-32.0); CALCIUM 7.9 MG/DL (8.5-10.1); CHLORIDE 105 MMOL/L (99-107); CREATININE 0.61 MG/DL (0.60-1.10); GLUCOSE 155 MG/DL (70-104); MAGNESIUM 2.1 MG/DL (1.5-2.4); SODIUM 144 MMOL/L (135-145); TOTAL CARBON DIOXIDE 29.1 MMOL/L (24-32); TOTAL PROTEIN 5.9 G/DL (6.4-8.2); eGFR > 90 ML/MIN
--- NOTE | 2022-02-10 07:41 | NUR ---
CRITICAL POTASSIUM 3.0, DR CLAYTON,WILL REPLACE PER PROTOCOL PAGER ID: [phone] MESSAGE: MARKELL CONCEPCION 3021: CRITICAL POTASSIUM 3.0, WILL REPLACE PER PROTOCOL. THANKS SANDY [phone]
[2022-02-10] MEDS: pantoprazole 40mg Tablet.DR PO SCH (07:57)
[2022-02-10] MEDS: atorvastatin 20mg tablet PO SCH (07:57)
[2022-02-10] MEDS: docusate sod 100mg capsule PO SCH ×2 (07:57→20:00)
[2022-02-10 08:00] VITALS: BP 143/76
[2022-02-10] MEDS: K and/or MAG REPLACEMENT MC SCH ×2 (08:00→20:00)
[2022-02-10] MEDS: losartan 50mg tablet PO SCH (08:01)
[2022-02-10] MEDS: baclofen 10mg tablet PO SCH ×2 (08:02→21:05)
[2022-02-10] MEDS: atenolol 25mg tablet PO SCH (08:02)
[2022-02-10] MEDS: linagliptin 5mg tablet PO SCH (08:02)
[2022-02-10] MEDS: heparin, porcine 5000 units/ml vial SQ SCH ×2 (08:04→21:06)
[2022-02-10 11:00] VITALS: BP 123/74
[2022-02-10] MEDS ORDERED: potassium Cl 20 mEq SR tablet PO PRN (12:30)
[2022-02-10] MEDS: potassium Cl 20 mEq SR tablet PO PRN ×2 (13:59→21:05)
[2022-02-10] MEDS: insulin Lispro (HumaLOG) vial - multi-dose SQ SCH (14:03)
[2022-02-10 15:00] VITALS: BP 140/61
[2022-02-10 18:30] VITALS: BP 138/62
--- NOTE | 2022-02-10 19:47 | NUR ---
Problems reprioritized. Patient report given, questions answered & plan of care reviewed with SRINIVASA MANCERA.
[2022-02-10] MEDS: tamsulosin 0.4mg capsule PO SCH (21:05)
[2022-02-10] MEDS: insulin glargine (Lantus) pen - multi-dose SQ SCH (21:09)
[2022-02-10 22:00] VITALS: BP 127/64
[2022-02-11] MEDS: piperacillin/tazo 4.5gm/100ml 100 ML IV SCH ×3 (00:56→16:27)
[2022-02-11] MEDS: potassium Cl 20 mEq SR tablet PO PRN (01:32)
[2022-02-11 02:00] VITALS: BP 138/62
[2022-02-11] MEDS: HYDROcodone/acetaminophen 10/325mg tab PO PRN ×2 (02:39→22:49)
[2022-02-11] MEDS: normal saline 1000ml 1,000 ML IV SCH ×2 (05:39→16:27)
--- NOTE | 2022-02-11 07:23 | NUR ---
Patient in room U 3027U. I have received report from SRINIVASA MANCERA and had the opportunity to ask questions and assume patient care.
[2022-02-11] MEDS: JUVEN Smoothie Arginine/Glut./Ca2+Bmb (Juven 19.3pkt) 240ml cup PO SCH ×2 (07:30→18:03)
[2022-02-11 07:31] VITALS: BP 140/54
[2022-02-11 07:42] LABS: BASOPHILS # (AUTO) 0.1 X10'3 (0-0.2); EOSINOPHILS # (AUTO) 0.3 X10'3 (0-0.9); EOSINOPHILS % (AUTO) 2.7 % (0-6); LYMPHOCYTES # (AUTO) 2.4 X10'3 (1.1-4.8); NEUTROPHILS # (AUTO) 8.2 X10'3 (1.8-7.7); WHITE BLOOD COUNT 12.2 X10'3 (4.5-11.0)
[2022-02-11 07:44] LABS: BASOPHILS % (AUTO) 0.6 % (0-1); HEMATOCRIT 33.4 % (42.0-52.0); HEMOGLOBIN 11.2 g/dl (14.0-17.9); LYMPHOCYTES % (AUTO) 19.6 % (21-51); MEAN CORPUSCULAR HEMOGLOBIN 29.7 PG (27.0-31.0); MEAN CORPUSCULAR HGB CONC 33.4 g/dL (33.0-36.5); MEAN CORPUSCULAR VOLUME 88.9 FL (78-98); MONOCYTES # (AUTO) 1.2 X10'3 (0-0.9); MONOCYTES % (AUTO) 9.6 % (2-12); NEUTROPHILS % (AUTO) 67.5 % (42-75); PLATELET COUNT 506 X10'3 (140-440); RED BLOOD COUNT 3.76 X10'6 (4.70-6.10); RED CELL DISTRIBUTION WIDTH 14.1 % (11.5-14.5)
[2022-02-11] MEDS: baclofen 10mg tablet PO SCH ×2 (07:54→19:50)
[2022-02-11 07:55] LABS: ALANINE AMINOTRANSFERASE 15 U/L (12-78); ALBUMIN 2.2 G/DL (3.4-5.0); ALBUMIN/GLOBULIN RATIO 0.6 (1.1-1.5); ALKALINE PHOSPHATASE 52 IU/L (46-116); ANION GAP 7 (8-16); ASPARTATE AMINO TRANSFERASE 11 U/L (10-37); BILIRUBIN,TOTAL 0.3 MG/DL (0.1-1.0); BLOOD UREA NITROGEN 14 MG/DL (7-18); BUN/CREATININE RATIO 21.2 (5.4-32.0); CALCIUM 8.2 MG/DL (8.5-10.1); CHLORIDE 107 MMOL/L (99-107); CREATININE 0.66 MG/DL (0.60-1.10); GLUCOSE 134 MG/DL (70-104); POTASSIUM 3.4 MMOL/L (3.5-5.1); SODIUM 146 MMOL/L (135-145); TOTAL CARBON DIOXIDE 31.9 MMOL/L (24-32); TOTAL PROTEIN 6.1 G/DL (6.4-8.2); eGFR > 90 ML/MIN
[2022-02-11] MEDS: linagliptin 5mg tablet PO SCH (07:57)
[2022-02-11] MEDS: docusate sod 100mg capsule PO SCH ×2 (07:57→19:50)
[2022-02-11] MEDS: atorvastatin 20mg tablet PO SCH (07:57)
[2022-02-11] MEDS: heparin, porcine 5000 units/ml vial SQ SCH ×2 (07:57→19:50)
[2022-02-11] MEDS: pantoprazole 40mg Tablet.DR PO SCH (07:58)
[2022-02-11] MEDS: K and/or MAG REPLACEMENT MC SCH ×2 (08:00→20:00)
[2022-02-11] MEDS: atenolol 25mg tablet PO SCH (08:00)
[2022-02-11] MEDS: HYDROmorphone inj. 0.5 MG/0.5 ML DISP.SYRIN IV PRN ×2 (09:35→17:22)
[2022-02-11] MEDS: insulin Lispro (HumaLOG) vial - multi-dose SQ SCH ×3 (09:40→19:46)
[2022-02-11] MEDS: losartan 50mg tablet PO SCH (09:52)
--- NOTE | 2022-02-11 10:31 | NUR ---
Provided pt w/ written and verbal Colostomy diet education w/ RD contact info. Addendum: 02/11/22 at [address] Amended: Links added.
[2022-02-11 11:00] VITALS: BP 113/53
[2022-02-11 15:00] VITALS: BP 143/67
[2022-02-11 18:00] VITALS: BP 134/59
--- NOTE | 2022-02-11 18:28 | NUR ---
Problems reprioritized. Patient report given, questions answered & plan of care reviewed with JOAN HALL.
--- NOTE | 2022-02-11 18:30 | NUR ---
Patient in room PCU 3013. I have received report from raffi and had the opportunity to ask questions and assume patient care.
[2022-02-11] MEDS: insulin glargine (Lantus) pen - multi-dose SQ SCH (21:42)
[2022-02-11] MEDS: tamsulosin 0.4mg capsule PO SCH (21:43)
[2022-02-12] MEDS: piperacillin/tazo 4.5gm/100ml 100 ML IV SCH ×3 (01:49→16:52)
[2022-02-12 02:00] VITALS: BP 149/77
[2022-02-12 06:00] VITALS: BP 134/69
--- NOTE | 2022-02-12 06:09 | NUR ---
Problems reprioritized. Patient report given, questions answered & plan of care reviewed with raffi.
--- NOTE | 2022-02-12 06:16 | NUR ---
Patient in room PCU 3013A. I have received report from JOAN HALL and had the opportunity to ask questions and assume patient care.
[2022-02-12 07:16] LABS: POTASSIUM 3.6 MMOL/L (3.5-5.1)
[2022-02-12] MEDS: K and/or MAG REPLACEMENT MC SCH ×2 (08:00→20:00)
[2022-02-12] MEDS: baclofen 10mg tablet PO SCH ×2 (08:10→21:16)
[2022-02-12] MEDS: atenolol 25mg tablet PO SCH (08:13)
[2022-02-12] MEDS: linagliptin 5mg tablet PO SCH (08:14)
[2022-02-12] MEDS: atorvastatin 20mg tablet PO SCH (08:14)
[2022-02-12] MEDS: losartan 50mg tablet PO SCH (08:14)
[2022-02-12] MEDS: pantoprazole 40mg Tablet.DR PO SCH (08:15)
[2022-02-12] MEDS: JUVEN Smoothie Arginine/Glut./Ca2+Bmb (Juven 19.3pkt) 240ml cup PO SCH ×2 (08:15→18:00)
[2022-02-12] MEDS: docusate sod 100mg capsule PO SCH ×2 (08:15→21:16)
[2022-02-12] MEDS: heparin, porcine 5000 units/ml vial SQ SCH ×2 (08:16→21:18)
--- NOTE | 2022-02-12 08:41 | NUR ---
Reassessment: Pt now on Low fiber diet w/ avg intake 60% of meals w/ 100% intake of first 3 Brian smoothies. Overall meeting approximately 100% of est energy needs and 73% of est protein needs. LBM 02/10 though no stool output amount noted. No change to recommendations at this time, will continue to monitor. Recs; 1. Continue low fiber diet as tolerated 2. Brian Smoothies BID 3. Bowel care per rx 4. Scaled wts Addendum: 02/12/22 at [address] Amended: Links added.
[2022-02-12 08:56] LABS: ALBUMIN 2.2 G/DL (3.4-5.0); ANION GAP 10 (8-16); BLOOD UREA NITROGEN 16 MG/DL (7-18); BUN/CREATININE RATIO 20.5 (5.4-32.0); CALCIUM 8.3 MG/DL (8.5-10.1); CHLORIDE 105 MMOL/L (99-107); CREATININE 0.78 MG/DL (0.60-1.10); GLUCOSE 121 MG/DL (70-104); SODIUM 146 MMOL/L (135-145); TOTAL CARBON DIOXIDE 30.7 MMOL/L (24-32); eGFR > 90 ML/MIN
[2022-02-12 08:57] LABS: BASOPHILS # (AUTO) 0.1 X10'3 (0-0.2); BASOPHILS % (AUTO) 0.8 % (0-1); EOSINOPHILS # (AUTO) 0.4 X10'3 (0-0.9); EOSINOPHILS % (AUTO) 3.3 % (0-6); HEMATOCRIT 35.5 % (42.0-52.0); HEMOGLOBIN 11.6 g/dl (14.0-17.9); LYMPHOCYTES # (AUTO) 2.1 X10'3 (1.1-4.8); LYMPHOCYTES % (AUTO) 16.6 % (21-51); MEAN CORPUSCULAR HEMOGLOBIN 29.4 PG (27.0-31.0); MEAN CORPUSCULAR HGB CONC 32.9 g/dL (33.0-36.5); MEAN CORPUSCULAR VOLUME 89.6 FL (78-98); MEAN PLATELET VOLUME 7.5 FL (7.4-10.4); MONOCYTES # (AUTO) 0.9 X10'3 (0-0.9); MONOCYTES % (AUTO) 6.6 % (2-12); NEUTROPHILS # (AUTO) 9.3 X10'3 (1.8-7.7); NEUTROPHILS % (AUTO) 72.7 % (42-75); PLATELET COUNT 493 X10'3 (140-440); RED BLOOD COUNT 3.96 X10'6 (4.70-6.10); RED CELL DISTRIBUTION WIDTH 14.2 % (11.5-14.5); WHITE BLOOD COUNT 12.9 X10'3 (4.5-11.0)
[2022-02-12] MEDS: insulin Lispro (HumaLOG) vial - multi-dose SQ SCH ×2 (09:23→19:15)
[2022-02-12] MEDS: HYDROmorphone inj. 0.5 MG/0.5 ML DISP.SYRIN IV PRN ×3 (09:34→21:31)
[2022-02-12 11:00] VITALS: BP 115/63
--- NOTE | 2022-02-12 11:07 | NUR ---
[facility] assessment for fit issue of ostomy appliance per primary nurse request. Appliance found to not be intact and was removed and peristomal area cleansed w/ wet washcloth and skin prep applied prior to placing pouch. Rebeca stomal skin is intact the stoma is red and moist slightly edematous and stool is soft. Pt w/ return demonstration of empty technique, closing cuff and able to verbalize understanding. Pt noted to have dexterity issues to his left hand and will need more one on one to adapt using 2 piece system. Will recommend no tape wafer and/or one piece appliance for future use.
[2022-02-12] MEDS: normal saline 1000ml 1,000 ML IV SCH (13:32)
[2022-02-12 15:00] VITALS: BP 116/71
[2022-02-12 18:00] VITALS: BP 129/68
--- NOTE | 2022-02-12 18:38 | NUR ---
Problems reprioritized. Patient report given, questions answered & plan of care reviewed with SRINIVASA GOMEZ.
[2022-02-12] MEDS: insulin glargine (Lantus) pen - multi-dose SQ SCH (21:14)
[2022-02-12] MEDS: tamsulosin 0.4mg capsule PO SCH (21:16)
[2022-02-12 22:00] VITALS: BP 127/67
[2022-02-13] MEDS: piperacillin/tazo 4.5gm/100ml 100 ML IV SCH ×4 (00:34→23:57)
[2022-02-13 02:00] VITALS: BP 132/63
[2022-02-13] MEDS: normal saline 1000ml 1,000 ML IV SCH ×2 (02:45→14:51)
[2022-02-13] MEDS: HYDROmorphone inj. 0.5 MG/0.5 ML DISP.SYRIN IV PRN ×5 (02:46→23:57)
[2022-02-13 07:04] LABS: BASOPHILS # (AUTO) 0.2 X10'3 (0-0.2); BASOPHILS % (AUTO) 1.1 % (0-1); EOSINOPHILS # (AUTO) 0.4 X10'3 (0-0.9); HEMATOCRIT 34.9 % (42.0-52.0); HEMOGLOBIN 11.4 g/dl (14.0-17.9); LYMPHOCYTES # (AUTO) 2.8 X10'3 (1.1-4.8); LYMPHOCYTES % (AUTO) 18.8 % (21-51); MEAN CORPUSCULAR HEMOGLOBIN 29.4 PG (27.0-31.0); MEAN CORPUSCULAR HGB CONC 32.6 g/dL (33.0-36.5); MEAN CORPUSCULAR VOLUME 90.1 FL (78-98); MEAN PLATELET VOLUME 7.1 FL (7.4-10.4); MONOCYTES # (AUTO) 1.1 X10'3 (0-0.9); MONOCYTES % (AUTO) 7.7 % (2-12); NEUTROPHILS # (AUTO) 10.2 X10'3 (1.8-7.7); NEUTROPHILS % (AUTO) 69.4 % (42-75); PLATELET COUNT 490 X10'3 (140-440); RED BLOOD COUNT 3.88 X10'6 (4.70-6.10); RED CELL DISTRIBUTION WIDTH 14.3 % (11.5-14.5); WHITE BLOOD COUNT 14.7 X10'3 (4.5-11.0)
[2022-02-13 07:07] LABS: ALBUMIN 2.3 G/DL (3.4-5.0); ANION GAP 9 (8-16); BLOOD UREA NITROGEN 14 MG/DL (7-18); BUN/CREATININE RATIO 19.4 (5.4-32.0); CALCIUM 8.7 MG/DL (8.5-10.1); CHLORIDE 106 MMOL/L (99-107); CREATININE 0.72 MG/DL (0.60-1.10); GLUCOSE 112 MG/DL (70-104); POTASSIUM 3.9 MMOL/L (3.5-5.1); SODIUM 144 MMOL/L (135-145); TOTAL CARBON DIOXIDE 29.5 MMOL/L (24-32); eGFR > 90 ML/MIN
--- NOTE | 2022-02-13 07:07 | NUR ---
1800 Report given to this RN from SRINIVASA Aquino. Care assumed. Pt had to be urged to turn. Refused turns this morning and wanted a break and to be on his back. Pt frustrated that staff would not give him all insulin shots in same area as he does at home. Educated him on the importance of rotating insulin injection sites. Pt getting pain meds x several doses. 0600 Report given to SRINIVASA Sam. Questions answered. Pt in no acute distress at time of handoff.
[2022-02-13] MEDS: JUVEN Smoothie Arginine/Glut./Ca2+Bmb (Juven 19.3pkt) 240ml cup PO SCH ×2 (07:30→17:31)
[2022-02-13] MEDS: K and/or MAG REPLACEMENT MC SCH ×2 (08:00→20:00)
[2022-02-13] MEDS: heparin, porcine 5000 units/ml vial SQ SCH ×2 (08:00→21:25)
[2022-02-13] MEDS: linagliptin 5mg tablet PO SCH (10:31)
[2022-02-13] MEDS: docusate sod 100mg capsule PO SCH ×2 (10:32→21:24)
[2022-02-13] MEDS: atorvastatin 20mg tablet PO SCH (10:32)
[2022-02-13] MEDS: pantoprazole 40mg Tablet.DR PO SCH (10:32)
[2022-02-13] MEDS: baclofen 10mg tablet PO SCH ×2 (10:32→21:24)
[2022-02-13] MEDS: atenolol 25mg tablet PO SCH (10:37)
[2022-02-13] MEDS: losartan 50mg tablet PO SCH (10:38)
[2022-02-13] MEDS: insulin Lispro (HumaLOG) vial - multi-dose SQ SCH ×2 (13:56→19:44)
--- NOTE | 2022-02-13 16:54 | NUR ---
Paged Dr. Gallagher regarding patient low BS and that I replaced per protocol. PAGER ID: [phone] MESSAGE: [id number], Angeli Dickerson. Pt had a critical BS of 43. I gave D50 per protocol. Rechecking now. Cecy [facility] [id number].
[2022-02-13 18:00] VITALS: BP 141/79
[2022-02-13] MEDS: tamsulosin 0.4mg capsule PO SCH (21:24)
[2022-02-13] MEDS: insulin glargine (Lantus) pen - multi-dose SQ SCH (22:19)
[2022-02-13 23:30] VITALS: BP 148/55
[2022-02-13] MEDS: nystatin 15 GM powder TP SCH (23:55)
[2022-02-14] MEDS: HYDROcodone/acetaminophen 10/325mg tab PO PRN ×2 (03:31→14:34)
[2022-02-14] MEDS: normal saline 1000ml 1,000 ML IV SCH ×2 (05:09→19:27)
--- NOTE | 2022-02-14 05:57 | NUR ---
1800 Report given to this RN from SRINIVASA Sam. Care assumed. Pt in no acute distress. Pt more agreeable to turns overnight. Coccyx wet to dry dressing change done and colostomy bag changed. Pt got [place] and [place] for pain. Urine output adequate. Addendum: 02/14/22 at 0643 by Angie Ivey RN Report given back to SRINIVASA Sam at bedside. Questions answered. Pt in no acute distress at time of handoff.
[2022-02-14 06:00] VITALS: BP 105/46
--- NOTE | 2022-02-14 06:30 | NUR ---
Patient in room PCU 3013. I have received report from Elyssa BERNABE and had the opportunity to ask questions and assume patient care.
[2022-02-14] MEDS: atenolol 25mg tablet PO SCH (08:00)
[2022-02-14] MEDS: K and/or MAG REPLACEMENT MC SCH ×2 (08:00→20:00)
[2022-02-14] MEDS: nystatin 15 GM powder TP SCH ×2 (08:02→19:46)
[2022-02-14] MEDS: piperacillin/tazo 4.5gm/100ml 100 ML IV SCH ×2 (08:02→16:00)
[2022-02-14] MEDS: docusate sod 100mg capsule PO SCH ×2 (08:03→19:43)
[2022-02-14] MEDS: linagliptin 5mg tablet PO SCH (08:03)
[2022-02-14] MEDS: heparin, porcine 5000 units/ml vial SQ SCH ×2 (08:03→19:46)
[2022-02-14] MEDS: losartan 50mg tablet PO SCH (08:04)
[2022-02-14] MEDS: atorvastatin 20mg tablet PO SCH (08:07)
[2022-02-14] MEDS: baclofen 10mg tablet PO SCH ×2 (08:07→19:43)
[2022-02-14] MEDS: pantoprazole 40mg Tablet.DR PO SCH (08:07)
[2022-02-14] MEDS: JUVEN Smoothie Arginine/Glut./Ca2+Bmb (Juven 19.3pkt) 240ml cup PO SCH ×2 (08:19→17:30)
[2022-02-14 11:00] VITALS: BP 128/64
[2022-02-14] MEDS: HYDROmorphone inj. 0.5 MG/0.5 ML DISP.SYRIN IV PRN ×2 (11:53→19:44)
[2022-02-14] MEDS: insulin Lispro (HumaLOG) vial - multi-dose SQ SCH ×2 (14:28→19:58)
[2022-02-14 18:00] VITALS: BP 145/74
--- NOTE | 2022-02-14 18:45 | NUR ---
Patient in room PCU 3013. I have received report from SRINIVASA Sam and had the opportunity to ask questions and assume patient care.
--- NOTE | 2022-02-14 19:13 | NUR ---
Problems reprioritized. Patient report given, questions answered & plan of care reviewed with Estrella BERNABE, patient stable at transfer of care.
[2022-02-14] MEDS: tamsulosin 0.4mg capsule PO SCH (21:11)
[2022-02-14] MEDS: insulin glargine (Lantus) pen - multi-dose SQ SCH (21:23)
[2022-02-14 22:00] VITALS: BP 119/56
[2022-02-15] MEDS: piperacillin/tazo 4.5gm/100ml 100 ML IV SCH ×4 (00:06→23:54)
[2022-02-15 02:00] VITALS: BP 109/59
[2022-02-15] MEDS: HYDROmorphone inj. 0.5 MG/0.5 ML DISP.SYRIN IV PRN ×3 (05:34→18:43)
[2022-02-15 06:00] VITALS: BP 129/67
--- NOTE | 2022-02-15 06:57 | NUR ---
Problems reprioritized. Patient report given, questions answered & plan of care reviewed with SRINIVASA Blunt.
[2022-02-15] MEDS: K and/or MAG REPLACEMENT MC SCH ×2 (08:00→20:00)
[2022-02-15] MEDS: pantoprazole 40mg Tablet.DR PO SCH (08:23)
[2022-02-15] MEDS: heparin, porcine 5000 units/ml vial SQ SCH ×2 (08:23→19:37)
[2022-02-15] MEDS: atorvastatin 20mg tablet PO SCH (08:24)
[2022-02-15] MEDS: losartan 50mg tablet PO SCH (08:24)
[2022-02-15] MEDS: atenolol 25mg tablet PO SCH (08:24)
[2022-02-15] MEDS: docusate sod 100mg capsule PO SCH ×2 (08:24→19:37)
[2022-02-15] MEDS: linagliptin 5mg tablet PO SCH (08:24)
[2022-02-15] MEDS: JUVEN Smoothie Arginine/Glut./Ca2+Bmb (Juven 19.3pkt) 240ml cup PO SCH ×2 (08:25→17:30)
[2022-02-15] MEDS: nystatin 15 GM powder TP SCH ×2 (08:25→19:38)
[2022-02-15] MEDS: baclofen 10mg tablet PO SCH ×2 (08:25→19:37)
[2022-02-15] MEDS: HYDROcodone/acetaminophen 10/325mg tab PO PRN ×2 (08:36→15:56)
[2022-02-15] MEDS: normal saline 1000ml 1,000 ML IV SCH (09:45)
[2022-02-15] MEDS: insulin Lispro (HumaLOG) vial - multi-dose SQ SCH ×2 (09:55→19:46)
[2022-02-15 11:00] VITALS: BP 112/57
[2022-02-15 18:00] VITALS: BP 159/68
[2022-02-15] MEDS: tamsulosin 0.4mg capsule PO SCH (21:29)
[2022-02-15] MEDS: insulin glargine (Lantus) pen - multi-dose SQ SCH (21:35)
[2022-02-15 22:00] VITALS: BP 107/55
[2022-02-16] MEDS: normal saline 1000ml 1,000 ML IV SCH ×2 (01:51→14:21)
[2022-02-16 02:00] VITALS: BP 135/60
[2022-02-16] MEDS: HYDROmorphone inj. 0.5 MG/0.5 ML DISP.SYRIN IV PRN ×3 (04:41→19:05)
[2022-02-16 07:09] LABS: BASOPHILS # (AUTO) 0.1 X10'3 (0-0.2); BASOPHILS % (AUTO) 0.7 % (0-1); EOSINOPHILS # (AUTO) 0.4 X10'3 (0-0.9); HEMOGLOBIN 12.7 g/dl (14.0-17.9); MONOCYTES # (AUTO) 1.2 X10'3 (0-0.9); RED BLOOD COUNT 4.25 X10'6 (4.70-6.10)
[2022-02-16 07:12] LABS: EOSINOPHILS % (AUTO) 2.6 % (0-6); HEMATOCRIT 37.8 % (42.0-52.0); LYMPHOCYTES # (AUTO) 1.9 X10'3 (1.1-4.8); LYMPHOCYTES % (AUTO) 13.2 % (21-51); MEAN CORPUSCULAR HEMOGLOBIN 29.9 PG (27.0-31.0); MEAN CORPUSCULAR HGB CONC 33.7 g/dL (33.0-36.5); MEAN CORPUSCULAR VOLUME 88.9 FL (78-98); MEAN PLATELET VOLUME 6.8 FL (7.4-10.4); MONOCYTES % (AUTO) 8.6 % (2-12); NEUTROPHILS # (AUTO) 10.8 X10'3 (1.8-7.7); NEUTROPHILS % (AUTO) 74.9 % (42-75); PLATELET COUNT 613 X10'3 (140-440); RED CELL DISTRIBUTION WIDTH 14.5 % (11.5-14.5); WHITE BLOOD COUNT 14.4 X10'3 (4.5-11.0)
--- NOTE | 2022-02-16 07:14 | NUR ---
Problems reprioritized. Patient report given, questions answered & plan of care reviewed with SRINIVASA Turk.
[2022-02-16 07:28] LABS: ALBUMIN 2.6 G/DL (3.4-5.0); ANION GAP 10 (8-16); BLOOD UREA NITROGEN 19 MG/DL (7-18); BUN/CREATININE RATIO 24.7 (5.4-32.0); CALCIUM 8.8 MG/DL (8.5-10.1); CHLORIDE 104 MMOL/L (99-107); CREATININE 0.77 MG/DL (0.60-1.10); GLUCOSE 160 MG/DL (70-104); POTASSIUM 4.1 MMOL/L (3.5-5.1); SODIUM 142 MMOL/L (135-145); TOTAL CARBON DIOXIDE 28.5 MMOL/L (24-32); eGFR > 90 ML/MIN
[2022-02-16] MEDS: JUVEN Smoothie Arginine/Glut./Ca2+Bmb (Juven 19.3pkt) 240ml cup PO SCH ×2 (07:30→17:30)
[2022-02-16] MEDS: K and/or MAG REPLACEMENT MC SCH ×2 (08:00→20:43)
[2022-02-16] MEDS: nystatin 15 GM powder TP SCH ×2 (08:00→20:45)
--- NOTE | 2022-02-16 09:36 | NUR ---
Reassessment: Pt on a CHO controlled low fiber diet and eating well, documented with 100% PO intake since last RD assessment (02/12). Pt receiving a Brian smoothie BIDBD of which pt documented with 100% PO intake of. Overall pt meeting estimated nutrient needs at this time. LBM 02/15 though no documentation of quantity of stool output per I&O. No further nutrition intervention implemented at this time. Will continue to follow. Recommendations: 1. Continue low fiber diet; discontinue CHO controlled restriction if BG levels well controlled 2. Brian Smoothies BIDBD; monitor need for additional protein for satiety 3. Bowel care per rx 4. Scaled wt this admit; subsequent weekly scaled weights Addendum: 02/16/22 at [address] Amended: Links added.
[2022-02-16] MEDS: heparin, porcine 5000 units/ml vial SQ SCH ×2 (09:39→20:36)
[2022-02-16] MEDS: losartan 50mg tablet PO SCH (09:40)
[2022-02-16] MEDS: atorvastatin 20mg tablet PO SCH (09:41)
[2022-02-16] MEDS: pantoprazole 40mg Tablet.DR PO SCH (09:41)
[2022-02-16] MEDS: HYDROcodone/acetaminophen 10/325mg tab PO PRN ×2 (09:41→23:15)
[2022-02-16] MEDS: atenolol 25mg tablet PO SCH ×2 (09:42→09:44)
[2022-02-16] MEDS: linagliptin 5mg tablet PO SCH (09:43)
[2022-02-16] MEDS: baclofen 10mg tablet PO SCH ×2 (09:43→20:39)
[2022-02-16] MEDS: docusate sod 100mg capsule PO SCH ×2 (09:43→20:00)
[2022-02-16] MEDS: piperacillin/tazo 4.5gm/100ml 100 ML IV SCH ×2 (09:43→17:12)
[2022-02-16] MEDS: insulin Lispro (HumaLOG) vial - multi-dose SQ SCH ×2 (14:05→20:32)
[2022-02-16 16:14] VITALS: BP 129/63
[2022-02-16 18:00] VITALS: BP 133/61
[2022-02-16] MEDS: tamsulosin 0.4mg capsule PO SCH (20:38)
[2022-02-16] MEDS: loratadine/pseudoephedrine TAB.SR.12Hour PO SCH (20:43)
[2022-02-16 22:00] VITALS: BP 114/53
[2022-02-16] MEDS: insulin glargine (Lantus) pen - multi-dose SQ SCH (23:26)
[2022-02-17 02:00] VITALS: BP 139/56
--- NOTE | 2022-02-17 04:00 | NUR ---
called pharmacy to advise med was missed. was advised to non admin midnight does follow doctors orders.
[2022-02-17] MEDS: normal saline 1000ml 1,000 ML IV SCH ×2 (04:39→15:57)
[2022-02-17 06:00] VITALS: BP 125/73
--- NOTE | 2022-02-17 06:57 | NUR ---
Problems reprioritized. Patient report given, questions answered & plan of care reviewed with Rosalee BERNABE.
[2022-02-17] MEDS: JUVEN Smoothie Arginine/Glut./Ca2+Bmb (Juven 19.3pkt) 240ml cup PO SCH ×2 (07:30→17:30)
[2022-02-17] MEDS: pantoprazole 40mg Tablet.DR PO SCH (07:36)
[2022-02-17] MEDS: atorvastatin 20mg tablet PO SCH (07:37)
[2022-02-17] MEDS: linagliptin 5mg tablet PO SCH (07:37)
[2022-02-17] MEDS: docusate sod 100mg capsule PO SCH ×2 (07:37→21:08)
[2022-02-17] MEDS: baclofen 10mg tablet PO SCH ×2 (07:37→21:08)
[2022-02-17] MEDS: nystatin 15 GM powder TP SCH ×2 (07:37→21:42)
[2022-02-17] MEDS: HYDROmorphone inj. 0.5 MG/0.5 ML DISP.SYRIN IV PRN ×3 (07:41→18:55)
[2022-02-17] MEDS: piperacillin/tazo 4.5gm/100ml 100 ML IV SCH ×4 (07:42→23:46)
[2022-02-17] MEDS: atenolol 25mg tablet PO SCH (07:46)
[2022-02-17] MEDS: losartan 50mg tablet PO SCH (07:47)
[2022-02-17] MEDS: K and/or MAG REPLACEMENT MC SCH ×2 (08:00→20:00)
[2022-02-17] MEDS: heparin, porcine 5000 units/ml vial SQ SCH ×2 (09:00→21:08)
[2022-02-17 09:17] LABS: BASOPHILS # (AUTO) 0.1 X10'3 (0-0.2); EOSINOPHILS # (AUTO) 0.3 X10'3 (0-0.9); LYMPHOCYTES # (AUTO) 1.7 X10'3 (1.1-4.8); MONOCYTES # (AUTO) 0.9 X10'3 (0-0.9); NEUTROPHILS # (AUTO) 8.5 X10'3 (1.8-7.7); WHITE BLOOD COUNT 11.6 X10'3 (4.5-11.0)
[2022-02-17 09:18] LABS: HEMATOCRIT 37.2 % (42.0-52.0); HEMOGLOBIN 12.4 g/dl (14.0-17.9); MEAN CORPUSCULAR HEMOGLOBIN 29.6 PG (27.0-31.0); MEAN CORPUSCULAR HGB CONC 33.5 g/dL (33.0-36.5); MEAN CORPUSCULAR VOLUME 88.4 FL (78-98); MEAN PLATELET VOLUME 6.6 FL (7.4-10.4); MONOCYTES % (AUTO) 7.6 % (2-12); NEUTROPHILS % (AUTO) 73.4 % (42-75); PLATELET COUNT 610 X10'3 (140-440); RED CELL DISTRIBUTION WIDTH 14.7 % (11.5-14.5)
[2022-02-17 09:29] LABS: ALANINE AMINOTRANSFERASE 18 U/L (12-78); ALBUMIN 2.5 G/DL (3.4-5.0); ALBUMIN/GLOBULIN RATIO 0.5 (1.1-1.5); ALKALINE PHOSPHATASE 64 IU/L (46-116); ANION GAP 7 (8-16); ASPARTATE AMINO TRANSFERASE 13 U/L (10-37); BILIRUBIN,TOTAL 0.2 MG/DL (0.1-1.0); BLOOD UREA NITROGEN 19 MG/DL (7-18); BUN/CREATININE RATIO 26.4 (5.4-32.0); CALCIUM 8.8 MG/DL (8.5-10.1); CHLORIDE 102 MMOL/L (99-107); CREATININE 0.72 MG/DL (0.60-1.10); GLUCOSE 204 MG/DL (70-104); POTASSIUM 3.7 MMOL/L (3.5-5.1); SODIUM 137 MMOL/L (135-145); TOTAL PROTEIN 7.4 G/DL (6.4-8.2); eGFR > 90 ML/MIN
[2022-02-17 11:00] VITALS: BP 110/51
[2022-02-17] MEDS: HYDROcodone/acetaminophen 10/325mg tab PO PRN ×2 (12:36→19:57)
[2022-02-17] MEDS: loratadine/pseudoephedrine TAB.SR.12Hour PO SCH ×2 (12:43→21:00)
[2022-02-17] MEDS: insulin Lispro (HumaLOG) vial - multi-dose SQ SCH (13:32)
[2022-02-17 15:00] VITALS: BP 94/44
[2022-02-17 18:00] VITALS: BP 107/59
[2022-02-17] MEDS: tamsulosin 0.4mg capsule PO SCH (21:08)
[2022-02-17] MEDS: insulin glargine (Lantus) pen - multi-dose SQ SCH (21:38)
[2022-02-17 22:00] VITALS: BP 121/62
[2022-02-18 02:00] VITALS: BP 123/69
[2022-02-18] MEDS: HYDROmorphone inj. 0.5 MG/0.5 ML DISP.SYRIN IV PRN ×2 (04:45→11:06)
[2022-02-18 06:00] VITALS: BP 115/63
[2022-02-18 06:56] LABS: BASOPHILS # (AUTO) 0.1 X10'3 (0-0.2); LYMPHOCYTES # (AUTO) 2.1 X10'3 (1.1-4.8)
[2022-02-18 06:57] LABS: BASOPHILS % (AUTO) 1.1 % (0-1); EOSINOPHILS # (AUTO) 0.4 X10'3 (0-0.9); EOSINOPHILS % (AUTO) 3.8 % (0-6); HEMATOCRIT 34.8 % (42.0-52.0); LYMPHOCYTES % (AUTO) 20.3 % (21-51); MEAN CORPUSCULAR HEMOGLOBIN 30.4 PG (27.0-31.0); MEAN CORPUSCULAR HGB CONC 34.4 g/dL (33.0-36.5); MEAN CORPUSCULAR VOLUME 88.5 FL (78-98); MEAN PLATELET VOLUME 6.9 FL (7.4-10.4); MONOCYTES % (AUTO) 9.6 % (2-12); NEUTROPHILS # (AUTO) 6.8 X10'3 (1.8-7.7); NEUTROPHILS % (AUTO) 65.2 % (42-75); PLATELET COUNT 611 X10'3 (140-440); RED BLOOD COUNT 3.94 X10'6 (4.70-6.10); RED CELL DISTRIBUTION WIDTH 14.6 % (11.5-14.5); WHITE BLOOD COUNT 10.4 X10'3 (4.5-11.0)
[2022-02-18 07:19] LABS: ALANINE AMINOTRANSFERASE 18 U/L (12-78); ALBUMIN 2.5 G/DL (3.4-5.0); ALBUMIN/GLOBULIN RATIO 0.6 (1.1-1.5); ALKALINE PHOSPHATASE 59 IU/L (46-116); ANION GAP 10 (8-16); ASPARTATE AMINO TRANSFERASE 11 U/L (10-37); BILIRUBIN,TOTAL 0.2 MG/DL (0.1-1.0); BLOOD UREA NITROGEN 22 MG/DL (7-18); BUN/CREATININE RATIO 32.8 (5.4-32.0); CALCIUM 8.7 MG/DL (8.5-10.1); CHLORIDE 103 MMOL/L (99-107); CREATININE 0.67 MG/DL (0.60-1.10); GLUCOSE 130 MG/DL (70-104); POTASSIUM 3.7 MMOL/L (3.5-5.1); SODIUM 139 MMOL/L (135-145); TOTAL CARBON DIOXIDE 26.1 MMOL/L (24-32); TOTAL PROTEIN 6.9 G/DL (6.4-8.2); eGFR > 90 ML/MIN
[2022-02-18] MEDS: JUVEN Smoothie Arginine/Glut./Ca2+Bmb (Juven 19.3pkt) 240ml cup PO SCH ×2 (07:30→17:56)
[2022-02-18] MEDS: heparin, porcine 5000 units/ml vial SQ SCH ×2 (07:47→21:11)
[2022-02-18] MEDS: piperacillin/tazo 4.5gm/100ml 100 ML IV SCH ×2 (07:47→15:44)
[2022-02-18] MEDS: HYDROcodone/acetaminophen 10/325mg tab PO PRN ×3 (07:48→21:09)
[2022-02-18] MEDS: baclofen 10mg tablet PO SCH ×2 (07:48→21:10)
[2022-02-18] MEDS: linagliptin 5mg tablet PO SCH (07:48)
[2022-02-18] MEDS: atenolol 25mg tablet PO SCH (07:49)
[2022-02-18] MEDS: losartan 50mg tablet PO SCH (07:49)
[2022-02-18] MEDS: atorvastatin 20mg tablet PO SCH (07:49)
[2022-02-18] MEDS: docusate sod 100mg capsule PO SCH ×2 (07:49→21:10)
[2022-02-18] MEDS: pantoprazole 40mg Tablet.DR PO SCH (07:49)
[2022-02-18] MEDS: nystatin 15 GM powder TP SCH ×2 (07:50→21:11)
[2022-02-18] MEDS: loratadine/pseudoephedrine TAB.SR.12Hour PO SCH ×2 (08:00→22:19)
[2022-02-18] MEDS: K and/or MAG REPLACEMENT MC SCH ×2 (08:00→20:00)
[2022-02-18] MEDS: normal saline 1000ml 1,000 ML IV SCH ×2 (09:15→23:33)
[2022-02-18 11:00] VITALS: BP 129/70
[2022-02-18] MEDS: insulin Lispro (HumaLOG) vial - multi-dose SQ SCH (13:57)
[2022-02-18 15:00] VITALS: BP 123/69
[2022-02-18 18:00] VITALS: BP 123/87
--- NOTE | 2022-02-18 20:30 | NUR ---
PT REFUSED INSULIN COVERAGE FOR DINNER. WILL SEE PATIENT BLOOD GLUCOSE STATUS AT BLOOD GLUCOSE CHECK.
[2022-02-18 21:00] VITALS: BP 113/52
[2022-02-18] MEDS: tamsulosin 0.4mg capsule PO SCH (21:10)
[2022-02-18] MEDS: insulin glargine (Lantus) pen - multi-dose SQ SCH (21:23)
[2022-02-19] MEDS: piperacillin/tazo 4.5gm/100ml 100 ML IV SCH ×4 (00:31→23:05)
[2022-02-19] MEDS: normal saline 1000ml 1,000 ML IV SCH (00:31)
[2022-02-19 02:00] VITALS: BP 104/66
[2022-02-19] MEDS: HYDROmorphone inj. 0.5 MG/0.5 ML DISP.SYRIN IV PRN ×3 (04:24→19:25)
[2022-02-19 04:31] VITALS: BP 123/72
--- NOTE | 2022-02-19 06:28 | NUR ---
Problems reprioritized. Patient report given, questions answered & plan of care reviewed with SRINIVASA JACKSON.
[2022-02-19 06:42] LABS: BASOPHILS # (AUTO) 0.1 X10'3 (0-0.2); EOSINOPHILS # (AUTO) 0.4 X10'3 (0-0.9); EOSINOPHILS % (AUTO) 3.5 % (0-6); HEMATOCRIT 36.4 % (42.0-52.0); LYMPHOCYTES # (AUTO) 1.8 X10'3 (1.1-4.8); LYMPHOCYTES % (AUTO) 16.6 % (21-51); MEAN CORPUSCULAR HEMOGLOBIN 29.5 PG (27.0-31.0); MEAN CORPUSCULAR HGB CONC 32.9 g/dL (33.0-36.5); MEAN CORPUSCULAR VOLUME 89.7 FL (78-98); MEAN PLATELET VOLUME 6.9 FL (7.4-10.4); MONOCYTES # (AUTO) 0.9 X10'3 (0-0.9); MONOCYTES % (AUTO) 8.8 % (2-12); NEUTROPHILS # (AUTO) 7.4 X10'3 (1.8-7.7); NEUTROPHILS % (AUTO) 70.1 % (42-75); PLATELET COUNT 590 X10'3 (140-440); RED BLOOD COUNT 4.06 X10'6 (4.70-6.10); RED CELL DISTRIBUTION WIDTH 15.2 % (11.5-14.5); WHITE BLOOD COUNT 10.6 X10'3 (4.5-11.0)
[2022-02-19 07:00] VITALS: BP 122/60
[2022-02-19 07:10] LABS: ALANINE AMINOTRANSFERASE 16 U/L (12-78); ALBUMIN 2.6 G/DL (3.4-5.0); ALBUMIN/GLOBULIN RATIO 0.6 (1.1-1.5); ALKALINE PHOSPHATASE 61 IU/L (46-116); ANION GAP 9 (8-16); ASPARTATE AMINO TRANSFERASE 11 U/L (10-37); BILIRUBIN,TOTAL 0.2 MG/DL (0.1-1.0); BLOOD UREA NITROGEN 21 MG/DL (7-18); BUN/CREATININE RATIO 29.2 (5.4-32.0); CALCIUM 8.5 MG/DL (8.5-10.1); CHLORIDE 105 MMOL/L (99-107); CREATININE 0.72 MG/DL (0.60-1.10); GLUCOSE 129 MG/DL (70-104); POTASSIUM 3.8 MMOL/L (3.5-5.1); SODIUM 140 MMOL/L (135-145); TOTAL CARBON DIOXIDE 25.9 MMOL/L (24-32); eGFR > 90 ML/MIN
[2022-02-19] MEDS: JUVEN Smoothie Arginine/Glut./Ca2+Bmb (Juven 19.3pkt) 240ml cup PO SCH ×7 (07:30→23:23)
[2022-02-19] MEDS: HYDROcodone/acetaminophen 10/325mg tab PO PRN ×3 (07:37→23:04)
[2022-02-19] MEDS: losartan 50mg tablet PO SCH (07:38)
[2022-02-19] MEDS: heparin, porcine 5000 units/ml vial SQ SCH ×2 (07:38→19:27)
[2022-02-19] MEDS: atenolol 25mg tablet PO SCH (07:39)
[2022-02-19] MEDS: baclofen 10mg tablet PO SCH ×2 (07:39→19:26)
[2022-02-19] MEDS: atorvastatin 20mg tablet PO SCH (07:39)
[2022-02-19] MEDS: pantoprazole 40mg Tablet.DR PO SCH (07:39)
[2022-02-19] MEDS: linagliptin 5mg tablet PO SCH (07:39)
[2022-02-19] MEDS: docusate sod 100mg capsule PO SCH ×2 (07:39→19:25)
[2022-02-19] MEDS: nystatin 15 GM powder TP SCH ×2 (07:40→20:00)
[2022-02-19] MEDS: K and/or MAG REPLACEMENT MC SCH ×2 (08:00→20:00)
[2022-02-19] MEDS: loratadine/pseudoephedrine TAB.SR.12Hour PO SCH ×2 (09:19→19:25)
[2022-02-19] MEDS: insulin Lispro (HumaLOG) vial - multi-dose SQ SCH (09:23)
[2022-02-19 11:00] VITALS: BP 96/44
[2022-02-19 15:25] VITALS: BP 111/54
[2022-02-19] MEDS: tamsulosin 0.4mg capsule PO SCH (19:26)
[2022-02-19] MEDS: insulin glargine (Lantus) pen - multi-dose SQ SCH (22:59)
[2022-02-20 01:23] VITALS: BP 133/70
[2022-02-20] MEDS: normal saline 1000ml 1,000 ML IV SCH ×2 (04:11→08:23)
[2022-02-20] MEDS: HYDROmorphone inj. 0.5 MG/0.5 ML DISP.SYRIN IV PRN (05:05)
[2022-02-20 06:00] VITALS: BP 146/68
[2022-02-20 07:03] LABS: BASOPHILS # (AUTO) 0.1 X10'3 (0-0.2); BASOPHILS % (AUTO) 1.2 % (0-1); EOSINOPHILS # (AUTO) 0.3 X10'3 (0-0.9); HEMATOCRIT 36.7 % (42.0-52.0); HEMOGLOBIN 12.5 g/dl (14.0-17.9); LYMPHOCYTES # (AUTO) 1.6 X10'3 (1.1-4.8); LYMPHOCYTES % (AUTO) 17.1 % (21-51); MEAN CORPUSCULAR HEMOGLOBIN 30.4 PG (27.0-31.0); MEAN CORPUSCULAR VOLUME 89.4 FL (78-98); MEAN PLATELET VOLUME 6.9 FL (7.4-10.4); MONOCYTES # (AUTO) 0.8 X10'3 (0-0.9); MONOCYTES % (AUTO) 8.3 % (2-12); NEUTROPHILS # (AUTO) 6.8 X10'3 (1.8-7.7); NEUTROPHILS % (AUTO) 70.4 % (42-75); PLATELET COUNT 587 X10'3 (140-440); RED BLOOD COUNT 4.11 X10'6 (4.70-6.10); RED CELL DISTRIBUTION WIDTH 15.3 % (11.5-14.5); WHITE BLOOD COUNT 9.6 X10'3 (4.5-11.0)
[2022-02-20 07:31] LABS: ALANINE AMINOTRANSFERASE 16 U/L (12-78); ALBUMIN 2.7 G/DL (3.4-5.0); ALBUMIN/GLOBULIN RATIO 0.6 (1.1-1.5); ALKALINE PHOSPHATASE 65 IU/L (46-116); ANION GAP 8 (8-16); ASPARTATE AMINO TRANSFERASE 10 U/L (10-37); BILIRUBIN,TOTAL 0.2 MG/DL (0.1-1.0); BLOOD UREA NITROGEN 13 MG/DL (7-18); BUN/CREATININE RATIO 21.3 (5.4-32.0); CALCIUM 8.8 MG/DL (8.5-10.1); CHLORIDE 103 MMOL/L (99-107); CREATININE 0.61 MG/DL (0.60-1.10); GLUCOSE 130 MG/DL (70-104); POTASSIUM 3.8 MMOL/L (3.5-5.1); SODIUM 139 MMOL/L (135-145); TOTAL CARBON DIOXIDE 28.5 MMOL/L (24-32); TOTAL PROTEIN 7.2 G/DL (6.4-8.2); eGFR > 90 ML/MIN
--- NOTE | 2022-02-20 07:38 | NUR ---
Patient in room PCU 3013. I have received report from Jorge BERNABE Traveler and had the opportunity to ask questions and assume patient care.
[2022-02-20] MEDS: atenolol 25mg tablet PO SCH (08:00)
[2022-02-20] MEDS: K and/or MAG REPLACEMENT MC SCH ×2 (08:00→20:26)
[2022-02-20] MEDS: pantoprazole 40mg Tablet.DR PO SCH (08:18)
[2022-02-20] MEDS: baclofen 10mg tablet PO SCH ×2 (08:18→20:23)
[2022-02-20] MEDS: linagliptin 5mg tablet PO SCH (08:19)
[2022-02-20] MEDS: loratadine/pseudoephedrine TAB.SR.12Hour PO SCH ×2 (08:19→20:23)
[2022-02-20] MEDS: losartan 50mg tablet PO SCH (08:19)
[2022-02-20] MEDS: atorvastatin 20mg tablet PO SCH (08:19)
[2022-02-20] MEDS: docusate sod 100mg capsule PO SCH ×2 (08:20→20:23)
[2022-02-20] MEDS: HYDROcodone/acetaminophen 10/325mg tab PO PRN ×3 (08:21→20:23)
[2022-02-20] MEDS: heparin, porcine 5000 units/ml vial SQ SCH ×2 (08:22→20:22)
[2022-02-20] MEDS: piperacillin/tazo 4.5gm/100ml 100 ML IV SCH ×2 (08:22→16:33)
[2022-02-20] MEDS: nystatin 15 GM powder TP SCH ×2 (08:23→20:24)
--- NOTE | 2022-02-20 11:41 | NUR ---
WOC note: Report from WOC RN that drainage is green tinged. Spoke with Dr Ramirez and orders obtained to culture wound and then start Dakin's 1/4 strength wet to dry BID. Report to primary nurse also provided.
--- NOTE | 2022-02-20 11:46 | NUR ---
Reassessment: Pt continues eating well, documented with 100% PO intake of meals. Pt continues with 100% PO intake of Brian smoothie BIDBD with the exception of 0% PO intake of ONS at dinner 02/19. Overall pt continues meeting estimated nutrient needs. LBM 02/19 though no documentation of quantity of stool output per I&O. Will continue to follow and monitor need for further nutrition intervention. Recommendations: 1. Continue low fiber diet; discontinue CHO controlled restriction if BG levels well controlled 2. Brian Smoothies BIDBD; monitor need for additional protein for satiety 3. Bowel care per rx 4. Scaled wt this admit; subsequent weekly scaled weights Addendum: 02/20/22 at [address] Amended: Links added.
[2022-02-20] MEDS: insulin Lispro (HumaLOG) vial - multi-dose SQ SCH (13:32)
[2022-02-20 15:00] VITALS: BP 117/59
[2022-02-20 20:00] VITALS: BP 131/65
[2022-02-20] MEDS: Dakins solution (1/4 strength) 473ml solution TP SCH (20:24)
[2022-02-20] MEDS: insulin glargine (Lantus) pen - multi-dose SQ SCH (21:00)
[2022-02-20] MEDS: tamsulosin 0.4mg capsule PO SCH (21:00)
[2022-02-21] MEDS: piperacillin/tazo 4.5gm/100ml 100 ML IV SCH ×2 (00:40→08:00)
[2022-02-21] MEDS: HYDROcodone/acetaminophen 10/325mg tab PO PRN ×3 (00:40→20:43)
[2022-02-21 06:00] VITALS: BP 134/68
--- NOTE | 2022-02-21 06:15 | NUR ---
Patient in room PCU 3013. I have received report from Jorge BERNABE Traveler and had the opportunity to ask questions and assume patient care.
[2022-02-21] MEDS: HYDROmorphone inj. 0.5 MG/0.5 ML DISP.SYRIN IV PRN ×2 (07:15→16:20)
[2022-02-21] MEDS: docusate sod 100mg capsule PO SCH ×2 (07:19→20:42)
[2022-02-21] MEDS: baclofen 10mg tablet PO SCH ×2 (07:19→20:42)
[2022-02-21] MEDS: linagliptin 5mg tablet PO SCH (07:20)
[2022-02-21] MEDS: pantoprazole 40mg Tablet.DR PO SCH (07:20)
[2022-02-21] MEDS: atenolol 25mg tablet PO SCH (07:20)
[2022-02-21] MEDS: loratadine/pseudoephedrine TAB.SR.12Hour PO SCH ×2 (07:20→20:42)
[2022-02-21] MEDS: atorvastatin 20mg tablet PO SCH (07:20)
[2022-02-21] MEDS: heparin, porcine 5000 units/ml vial SQ SCH ×2 (07:21→20:43)
[2022-02-21] MEDS: JUVEN Smoothie Arginine/Glut./Ca2+Bmb (Juven 19.3pkt) 240ml cup PO SCH ×2 (07:26→09:41)
[2022-02-21] MEDS: K and/or MAG REPLACEMENT MC SCH ×2 (07:26→19:47)
[2022-02-21] MEDS: losartan 50mg tablet PO SCH (07:27)
[2022-02-21 07:40] LABS: BASOPHILS # (AUTO) 0.1 X10'3 (0-0.2); BASOPHILS % (AUTO) 1.6 % (0-1); EOSINOPHILS # (AUTO) 0.3 X10'3 (0-0.9); EOSINOPHILS % (AUTO) 3.7 % (0-6); HEMATOCRIT 36.3 % (42.0-52.0); HEMOGLOBIN 12.1 g/dl (14.0-17.9); LYMPHOCYTES # (AUTO) 1.9 X10'3 (1.1-4.8); MEAN CORPUSCULAR HEMOGLOBIN 29.7 PG (27.0-31.0); MEAN CORPUSCULAR HGB CONC 33.3 g/dL (33.0-36.5); MEAN CORPUSCULAR VOLUME 89.1 FL (78-98); MEAN PLATELET VOLUME 6.8 FL (7.4-10.4); MONOCYTES # (AUTO) 0.7 X10'3 (0-0.9); MONOCYTES % (AUTO) 9.5 % (2-12); NEUTROPHILS # (AUTO) 4.6 X10'3 (1.8-7.7); NEUTROPHILS % (AUTO) 60.2 % (42-75); PLATELET COUNT 550 X10'3 (140-440); RED BLOOD COUNT 4.07 X10'6 (4.70-6.10); RED CELL DISTRIBUTION WIDTH 15.1 % (11.5-14.5); WHITE BLOOD COUNT 7.6 X10'3 (4.5-11.0)
[2022-02-21 08:00] LABS: ALANINE AMINOTRANSFERASE 15 U/L (12-78); ALBUMIN 2.7 G/DL (3.4-5.0); ALBUMIN/GLOBULIN RATIO 0.6 (1.1-1.5); ALKALINE PHOSPHATASE 65 IU/L (46-116); ANION GAP 8 (8-16); ASPARTATE AMINO TRANSFERASE 9 U/L (10-37); BILIRUBIN,TOTAL 0.1 MG/DL (0.1-1.0); BLOOD UREA NITROGEN 14 MG/DL (7-18); BUN/CREATININE RATIO 26.4 (5.4-32.0); CALCIUM 8.8 MG/DL (8.5-10.1); CHLORIDE 103 MMOL/L (99-107); CREATININE 0.53 MG/DL (0.60-1.10); GLUCOSE 144 MG/DL (70-104); PHOSPHORUS 3.2 MG/DL (2.3-4.5); POTASSIUM 3.8 MMOL/L (3.5-5.1); SODIUM 139 MMOL/L (135-145); TOTAL CARBON DIOXIDE 28.4 MMOL/L (24-32); TOTAL PROTEIN 7.2 G/DL (6.4-8.2); eGFR > 90 ML/MIN
[2022-02-21] MEDS: nystatin 15 GM powder TP SCH ×2 (08:00→20:44)
[2022-02-21] MEDS: Dakins solution (1/4 strength) 473ml solution TP SCH ×2 (08:00→20:00)
[2022-02-21] MEDS: normal saline 1000ml 1,000 ML IV SCH ×2 (08:45→23:03)
[2022-02-21] MEDS: insulin Lispro (HumaLOG) vial - multi-dose SQ SCH (09:51)
[2022-02-21 11:00] VITALS: BP 129/61
[2022-02-21 15:00] VITALS: BP 123/68
[2022-02-21] MEDS: metroNIDAZOLE 500mg tablet PO SCH ×2 (16:27→20:42)
[2022-02-21] MEDS: CefTRIAXone 2gm/D5W 50ml BAG 50 ML IV SCH (16:27)
[2022-02-21 18:00] VITALS: BP 125/74
--- NOTE | 2022-02-21 18:20 | NUR ---
Problems reprioritized. Patient report given, questions answered & plan of care reviewed with Vicky EBRNABE.
[2022-02-21] MEDS: tamsulosin 0.4mg capsule PO SCH (20:42)
--- NOTE | 2022-02-21 23:12 | NUR ---
Patient in room PCU 3013. I have received report from LAYNE and had the opportunity to ask questions and assume patient care.
[2022-02-21] MEDS: insulin glargine (Lantus) pen - multi-dose SQ SCH (23:57)
[2022-02-22] MEDS: HYDROmorphone inj. 0.5 MG/0.5 ML DISP.SYRIN IV PRN ×3 (00:29→19:46)
[2022-02-22 02:00] VITALS: BP 128/80
[2022-02-22] MEDS: HYDROcodone/acetaminophen 10/325mg tab PO PRN ×4 (05:51→22:16)
[2022-02-22 06:00] VITALS: BP 97/68
--- NOTE | 2022-02-22 07:02 | NUR ---
Problems reprioritized. Patient report given, questions answered & plan of care reviewed with Grace.
[2022-02-22 07:05] LABS: BASOPHILS # (AUTO) 0.1 X10'3 (0-0.2); BASOPHILS % (AUTO) 1.8 % (0-1); EOSINOPHILS # (AUTO) 0.3 X10'3 (0-0.9); EOSINOPHILS % (AUTO) 4.8 % (0-6); HEMATOCRIT 37.8 % (42.0-52.0); HEMOGLOBIN 12.6 g/dl (14.0-17.9); LYMPHOCYTES # (AUTO) 2.2 X10'3 (1.1-4.8); LYMPHOCYTES % (AUTO) 30.8 % (21-51); MEAN CORPUSCULAR HEMOGLOBIN 30.2 PG (27.0-31.0); MEAN CORPUSCULAR HGB CONC 33.4 g/dL (33.0-36.5); MEAN CORPUSCULAR VOLUME 90.3 FL (78-98); MEAN PLATELET VOLUME 6.9 FL (7.4-10.4); MONOCYTES # (AUTO) 0.6 X10'3 (0-0.9); MONOCYTES % (AUTO) 8.8 % (2-12); NEUTROPHILS # (AUTO) 3.8 X10'3 (1.8-7.7); NEUTROPHILS % (AUTO) 53.8 % (42-75); PLATELET COUNT 571 X10'3 (140-440); RED BLOOD COUNT 4.19 X10'6 (4.70-6.10)
[2022-02-22 07:13] LABS: ALANINE AMINOTRANSFERASE 18 U/L (12-78); ALBUMIN 2.9 G/DL (3.4-5.0); ALBUMIN/GLOBULIN RATIO 0.6 (1.1-1.5); ALKALINE PHOSPHATASE 68 IU/L (46-116); ANION GAP 9 (8-16); ASPARTATE AMINO TRANSFERASE 10 U/L (10-37); BILIRUBIN,TOTAL 0.2 MG/DL (0.1-1.0); BLOOD UREA NITROGEN 15 MG/DL (7-18); BUN/CREATININE RATIO 26.3 (5.4-32.0); CALCIUM 8.9 MG/DL (8.5-10.1); CHLORIDE 101 MMOL/L (99-107); CREATININE 0.57 MG/DL (0.60-1.10); GLUCOSE 156 MG/DL (70-104); MAGNESIUM 1.9 MG/DL (1.5-2.4); PHOSPHORUS 3.3 MG/DL (2.3-4.5); POTASSIUM 3.7 MMOL/L (3.5-5.1); SODIUM 137 MMOL/L (135-145); TOTAL CARBON DIOXIDE 27.3 MMOL/L (24-32); TOTAL PROTEIN 7.6 G/DL (6.4-8.2); eGFR > 90 ML/MIN
[2022-02-22] MEDS: JUVEN Smoothie Arginine/Glut./Ca2+Bmb (Juven 19.3pkt) 240ml cup PO SCH ×2 (07:30→17:30)
[2022-02-22] MEDS: atenolol 50mg tablet PO SCH (08:00)
[2022-02-22] MEDS: K and/or MAG REPLACEMENT MC SCH ×2 (08:00→20:00)
[2022-02-22] MEDS: Dakins solution (1/4 strength) 473ml solution TP SCH ×2 (08:00→20:00)
[2022-02-22] MEDS: losartan 50mg tablet PO SCH (08:00)
[2022-02-22] MEDS: nystatin 15 GM powder TP SCH ×2 (08:25→19:49)
[2022-02-22] MEDS: CefTRIAXone 2gm/D5W 50ml BAG 50 ML IV SCH (08:26)
[2022-02-22] MEDS: baclofen 10mg tablet PO SCH ×2 (08:26→19:46)
[2022-02-22] MEDS: atorvastatin 20mg tablet PO SCH (08:27)
[2022-02-22] MEDS: loratadine/pseudoephedrine TAB.SR.12Hour PO SCH ×2 (08:27→19:46)
[2022-02-22] MEDS: heparin, porcine 5000 units/ml vial SQ SCH ×2 (08:27→19:49)
[2022-02-22] MEDS: docusate sod 100mg capsule PO SCH ×2 (08:27→19:46)
[2022-02-22] MEDS: metroNIDAZOLE 500mg tablet PO SCH ×3 (08:27→22:16)
[2022-02-22] MEDS: pantoprazole 40mg Tablet.DR PO SCH (08:27)
[2022-02-22] MEDS: linagliptin 5mg tablet PO SCH (08:28)
[2022-02-22 11:00] VITALS: BP 111/66
[2022-02-22] MEDS: normal saline 1000ml 1,000 ML IV SCH (13:21)
--- NOTE | 2022-02-22 14:55 | NUR ---
PRESSURE ULCER EDUCATION: DEFINITION: A pressure ulcer is an area of skin that breaks down when you stay in one position too long. The constant pressure against the skin reduces the blood flow to that area and the affected tissue dies. CAUSES: "Being bedridden or in a wheelchair "Fragile skin "Having a chronic condition, such as diabetes or vascular disease "Inability to move certain parts of your body without assistance "Older age "Incontinence of urine or stool SYMPTOMS: "A reddened area that DOES NOT turn white when pressed on - this can be the beginning of a pressure ulcer "A blister, deep sore or a crater - these can be advanced pressure ulcers FIRST AID: "Relieve the pressure on this area "Keep the area clean and dry "Call your primary doctor if you see any of the above symptoms "DO NOT massage the area "DO NOT use a donut shaped or ring shaped pillow- these actually interfere with the blood flow and cause complications PREVENTION: "Check for pressure ulcers everyday "Change position at least every two hours to relieve pressure "Use items that help relieve pressure- pillows, sheepskin, foam padding, and powders. "Keep skin clean and dry "Eat healthy well balanced meals "Exercise daily IF YOU SEE ANY OF THESE SYMPTOMS WHILE IN THE HOSPITAL - TELL YOUR NURSE IMMEDIATELY. IF YOU SEE ANY OF THESE SYMPTOMS WHILE AT HOME OR HAVE ANY QUESTIONS OR CONCERNS ABOUT PRESSURE ULCERS - CALL YOUR PRIMARY DOCTOR IMMEDIATELY. Addendum: 02/22/22 at 1455 by Rosalee Monte LVN Amended: Links added.
[2022-02-22 15:00] VITALS: BP 130/72
[2022-02-22 18:00] VITALS: BP 142/74
--- NOTE | 2022-02-22 18:00 | NUR ---
Patient in room PCU 3013. I have received report from Grace and had the opportunity to ask questions and assume patient care.
[2022-02-22 22:00] VITALS: BP 129/70
[2022-02-22] MEDS: tamsulosin 0.4mg capsule PO SCH (22:16)
[2022-02-22] MEDS: insulin glargine (Lantus) pen - multi-dose SQ SCH (22:35)
[2022-02-23 02:00] VITALS: BP 124/70
[2022-02-23] MEDS: normal saline 1000ml 1,000 ML IV SCH (03:39)
[2022-02-23] MEDS: HYDROcodone/acetaminophen 10/325mg tab PO PRN ×5 (04:36→23:14)
[2022-02-23 06:00] VITALS: BP 160/79
--- NOTE | 2022-02-23 06:10 | NUR ---
Problems reprioritized. Patient report given, questions answered & plan of care reviewed with Grace.
[2022-02-23] MEDS: HYDROmorphone inj. 0.5 MG/0.5 ML DISP.SYRIN IV PRN ×2 (07:28→16:12)
[2022-02-23] MEDS: JUVEN Smoothie Arginine/Glut./Ca2+Bmb (Juven 19.3pkt) 240ml cup PO SCH ×2 (07:30→17:42)
[2022-02-23 07:46] LABS: MAGNESIUM 1.8 MG/DL (1.5-2.4); PHOSPHORUS 3.7 MG/DL (2.3-4.5)
[2022-02-23] MEDS: K and/or MAG REPLACEMENT MC SCH ×2 (08:00→18:20)
[2022-02-23] MEDS: nystatin 15 GM powder TP SCH ×2 (08:00→23:06)
[2022-02-23] MEDS: Dakins solution (1/4 strength) 473ml solution TP SCH ×2 (08:00→20:00)
[2022-02-23] MEDS: linagliptin 5mg tablet PO SCH (09:20)
[2022-02-23] MEDS: pantoprazole 40mg Tablet.DR PO SCH (09:20)
[2022-02-23] MEDS: CefTRIAXone 2gm/D5W 50ml BAG 50 ML IV SCH (09:20)
[2022-02-23] MEDS: docusate sod 100mg capsule PO SCH ×2 (09:20→23:05)
[2022-02-23] MEDS: atorvastatin 20mg tablet PO SCH (09:21)
[2022-02-23] MEDS: heparin, porcine 5000 units/ml vial SQ SCH ×2 (09:21→23:07)
[2022-02-23] MEDS: metroNIDAZOLE 500mg tablet PO SCH ×3 (09:21→23:05)
[2022-02-23] MEDS: losartan 50mg tablet PO SCH (09:21)
[2022-02-23] MEDS: loratadine/pseudoephedrine TAB.SR.12Hour PO SCH ×2 (09:21→23:05)
[2022-02-23] MEDS: baclofen 10mg tablet PO SCH ×2 (09:22→23:06)
[2022-02-23] MEDS: atenolol 50mg tablet PO SCH (09:22)
[2022-02-23 11:00] VITALS: BP 142/76
[2022-02-23 15:30] VITALS: BP 142/70
--- NOTE | 2022-02-23 16:42 | NUR ---
Sacral dressing changed as ordered, patient tolerated well. [place] removed from midline abdomen incision as ordered
[2022-02-23 18:00] VITALS: BP 160/79
[2022-02-23] MEDS: insulin Lispro (HumaLOG) vial - multi-dose SQ SCH (20:23)
[2022-02-23 22:00] VITALS: BP 140/76
[2022-02-23] MEDS: tamsulosin 0.4mg capsule PO SCH (23:05)
[2022-02-23] MEDS: insulin glargine (Lantus) pen - multi-dose SQ SCH (23:28)
[2022-02-24 04:00] VITALS: BP 135/66
[2022-02-24] MEDS: HYDROcodone/acetaminophen 10/325mg tab PO PRN ×3 (05:17→21:08)
--- NOTE | 2022-02-24 05:55 | NUR ---
Patient refused sacral area dressing change, it is ICD.
[2022-02-24 07:06] LABS: MAGNESIUM 1.9 MG/DL (1.5-2.4); PHOSPHORUS 3.6 MG/DL (2.3-4.5)
[2022-02-24 07:56] VITALS: BP 136/70
[2022-02-24] MEDS: Dakins solution (1/4 strength) 473ml solution TP SCH ×2 (08:00→20:00)
[2022-02-24] MEDS: K and/or MAG REPLACEMENT MC SCH ×2 (08:00→21:00)
[2022-02-24] MEDS: nystatin 15 GM powder TP SCH ×2 (08:00→20:00)
[2022-02-24] MEDS: JUVEN Smoothie Arginine/Glut./Ca2+Bmb (Juven 19.3pkt) 240ml cup PO SCH ×2 (08:10→17:52)
[2022-02-24] MEDS: normal saline 1000ml 1,000 ML IV SCH ×3 (08:15→22:59)
[2022-02-24] MEDS: losartan 50mg tablet PO SCH (08:36)
[2022-02-24] MEDS: atorvastatin 20mg tablet PO SCH (08:37)
[2022-02-24] MEDS: docusate sod 100mg capsule PO SCH ×2 (08:37→20:59)
[2022-02-24] MEDS: linagliptin 5mg tablet PO SCH (08:37)
[2022-02-24] MEDS: loratadine/pseudoephedrine TAB.SR.12Hour PO SCH ×2 (08:37→20:56)
[2022-02-24] MEDS: baclofen 10mg tablet PO SCH ×2 (08:37→20:56)
[2022-02-24] MEDS: CefTRIAXone 2gm/D5W 50ml BAG 50 ML IV SCH (08:37)
[2022-02-24] MEDS: metroNIDAZOLE 500mg tablet PO SCH ×3 (08:37→20:57)
[2022-02-24] MEDS: pantoprazole 40mg Tablet.DR PO SCH (08:37)
[2022-02-24] MEDS: atenolol 50mg tablet PO SCH (08:37)
[2022-02-24] MEDS: heparin, porcine 5000 units/ml vial SQ SCH ×2 (08:38→20:58)
[2022-02-24 11:00] VITALS: BP 140/78
[2022-02-24] MEDS: HYDROmorphone inj. 0.5 MG/0.5 ML DISP.SYRIN IV PRN (14:53)
[2022-02-24 18:00] VITALS: BP 134/73
--- NOTE | 2022-02-24 18:28 | NUR ---
Problems reprioritized. Patient report given, questions answered & plan of care reviewed with LUCY BERNABE.
[2022-02-24] MEDS: tamsulosin 0.4mg capsule PO SCH (20:56)
[2022-02-24] MEDS: insulin glargine (Lantus) pen - multi-dose SQ SCH (21:25)
[2022-02-24 22:00] VITALS: BP 138/80
[2022-02-25 02:00] VITALS: BP 134/70
[2022-02-25 06:36] LABS: MAGNESIUM 2.1 MG/DL (1.5-2.4); PHOSPHORUS 3.6 MG/DL (2.3-4.5)
--- NOTE | 2022-02-25 06:43 | NUR ---
Patient in room PCU 3013. I have received report from Marco BERNABE and had the opportunity to ask questions and assume patient care.Pt resting in bed in no acute distress.
[2022-02-25 07:00] VITALS: BP 145/91
[2022-02-25] MEDS: K and/or MAG REPLACEMENT MC SCH ×2 (08:00→19:02)
[2022-02-25] MEDS: CefTRIAXone 2gm/D5W 50ml BAG 50 ML IV SCH (08:12)
[2022-02-25] MEDS: JUVEN Smoothie Arginine/Glut./Ca2+Bmb (Juven 19.3pkt) 240ml cup PO SCH ×2 (08:12→17:40)
[2022-02-25] MEDS: nystatin 15 GM powder TP SCH ×2 (08:12→22:53)
[2022-02-25] MEDS: losartan 50mg tablet PO SCH (08:13)
[2022-02-25] MEDS: loratadine/pseudoephedrine TAB.SR.12Hour PO SCH ×2 (08:13→22:24)
[2022-02-25] MEDS: linagliptin 5mg tablet PO SCH (08:13)
[2022-02-25] MEDS: baclofen 10mg tablet PO SCH ×2 (08:13→22:22)
[2022-02-25] MEDS: metroNIDAZOLE 500mg tablet PO SCH ×3 (08:13→22:26)
[2022-02-25] MEDS: docusate sod 100mg capsule PO SCH ×2 (08:14→22:24)
[2022-02-25] MEDS: atorvastatin 20mg tablet PO SCH (08:14)
[2022-02-25] MEDS: heparin, porcine 5000 units/ml vial SQ SCH ×2 (08:14→22:25)
[2022-02-25] MEDS: pantoprazole 40mg Tablet.DR PO SCH (08:14)
[2022-02-25] MEDS: HYDROcodone/acetaminophen 10/325mg tab PO PRN ×3 (08:15→22:23)
[2022-02-25] MEDS: atenolol 50mg tablet PO SCH (08:16)
[2022-02-25] MEDS: ondansetron/PF 4mg/2ml inj IV PRN (08:19)
[2022-02-25 08:49] LABS: ALANINE AMINOTRANSFERASE 41 U/L (12-78); ALBUMIN/GLOBULIN RATIO 0.7 (1.1-1.5); ALKALINE PHOSPHATASE 69 IU/L (46-116); ANION GAP 10 (8-16); ASPARTATE AMINO TRANSFERASE 32 U/L (10-37); BASOPHILS # (AUTO) 0.1 X10'3 (0-0.2); BASOPHILS % (AUTO) 1.9 % (0-1); BILIRUBIN,TOTAL 0.2 MG/DL (0.1-1.0); BLOOD UREA NITROGEN 13 MG/DL (7-18); BUN/CREATININE RATIO 25.5 (5.4-32.0); CALCIUM 9.1 MG/DL (8.5-10.1); CHLORIDE 105 MMOL/L (99-107); CREATININE 0.51 MG/DL (0.60-1.10); EOSINOPHILS # (AUTO) 0.3 X10'3 (0-0.9); EOSINOPHILS % (AUTO) 3.9 % (0-6); GLUCOSE 136 MG/DL (70-104); HEMATOCRIT 37.8 % (42.0-52.0); HEMOGLOBIN 12.8 g/dl (14.0-17.9); LYMPHOCYTES # (AUTO) 1.7 X10'3 (1.1-4.8); LYMPHOCYTES % (AUTO) 23.8 % (21-51); MEAN CORPUSCULAR HEMOGLOBIN 30.1 PG (27.0-31.0); MEAN CORPUSCULAR HGB CONC 33.7 g/dL (33.0-36.5); MEAN CORPUSCULAR VOLUME 89.3 FL (78-98); MEAN PLATELET VOLUME 7.2 FL (7.4-10.4); MONOCYTES # (AUTO) 0.5 X10'3 (0-0.9); MONOCYTES % (AUTO) 7.2 % (2-12); NEUTROPHILS # (AUTO) 4.6 X10'3 (1.8-7.7); NEUTROPHILS % (AUTO) 63.2 % (42-75); PLATELET COUNT 463 X10'3 (140-440); POTASSIUM 3.6 MMOL/L (3.5-5.1); RED BLOOD COUNT 4.23 X10'6 (4.70-6.10); RED CELL DISTRIBUTION WIDTH 15.1 % (11.5-14.5); SODIUM 139 MMOL/L (135-145); TOTAL CARBON DIOXIDE 24.4 MMOL/L (24-32); TOTAL PROTEIN 7.4 G/DL (6.4-8.2); WHITE BLOOD COUNT 7.3 X10'3 (4.5-11.0); eGFR > 90 ML/MIN
--- NOTE | 2022-02-25 09:09 | NUR ---
Reassessment: Pt continues eating well, documented with 100% PO intake of meals. Pt continues with 100% PO intake of Brian smoothie BIDBD since 02/21. Overall pt continues meeting estimated nutrient needs. Pt documented w/ 850ml stool output 02/21. Will continue to follow and monitor need for further nutrition intervention. Recommendations: 1. Continue low fiber diet; discontinue CHO controlled restriction if BG levels well controlled 2. Brian Smoothies BIDBD; monitor need for additional protein for satiety 3. Bowel care per rx 4. Scaled wt this admit; subsequent weekly scaled weights Addendum: 02/25/22 at [address] Amended: Links added.
--- NOTE | 2022-02-25 09:54 | NUR ---
Patient refusing humalog insulin stating" it just drops me". PT refusing insulin at this time
[2022-02-25 11:00] VITALS: BP 113/53
--- NOTE | 2022-02-25 13:15 | NUR ---
Patient refusing after lunch jey
[2022-02-25] MEDS: Dakins solution (1/4 strength) 473ml solution TP SCH ×2 (13:19→20:00)
[2022-02-25] MEDS: ciprofloxacin 250mg tablet PO SCH ×2 (13:19→22:23)
[2022-02-25] MEDS: VANCOmycin 1250MG/NS 250ml Bag 250 ML IV SCH (13:20)
[2022-02-25] MEDS: HYDROmorphone inj. 0.5 MG/0.5 ML DISP.SYRIN IV PRN (13:20)
[2022-02-25] MEDS: normal saline 1000ml 1,000 ML IV SCH (13:20)
[2022-02-25 15:00] VITALS: BP 116/59
[2022-02-25 18:00] VITALS: BP 135/71
--- NOTE | 2022-02-25 18:28 | NUR ---
Problems reprioritized. Patient report given, questions answered & plan of care reviewed with Marco BERNABE. Patient resting in bed in no acute distress
[2022-02-25] MEDS: insulin Lispro (HumaLOG) vial - multi-dose SQ SCH (19:38)
[2022-02-25] MEDS: tamsulosin 0.4mg capsule PO SCH (22:24)
[2022-02-25] MEDS: insulin glargine (Lantus) pen - multi-dose SQ SCH (22:41)
[2022-02-25 23:00] VITALS: BP 132/61
[2022-02-26] MEDS: VANCOmycin 1250MG/NS 250ml Bag 250 ML IV SCH ×2 (00:28→13:17)
[2022-02-26 02:45] VITALS: BP 144/63
[2022-02-26] MEDS: HYDROmorphone inj. 0.5 MG/0.5 ML DISP.SYRIN IV PRN ×2 (06:02→13:17)
[2022-02-26] MEDS: normal saline 1000ml 1,000 ML IV SCH ×3 (06:08→21:43)
--- NOTE | 2022-02-26 06:22 | NUR ---
Patient in room PCU 3013. I have received report from Marco BERNABE and had the opportunity to ask questions and assume patient care.Patient resting in bed in no acute distress.
--- NOTE | 2022-02-26 06:33 | NUR ---
Problems reprioritized. Patient report given, questions answered & plan of care reviewed with AM SRINIVASA Srinivasan.
[2022-02-26 07:00] VITALS: BP 136/70
[2022-02-26] MEDS: K and/or MAG REPLACEMENT MC SCH ×2 (08:00→20:00)
--- NOTE | 2022-02-26 08:12 | NUR ---
PATIENT REFUSING MORNING HUMALOG
[2022-02-26] MEDS: docusate sod 100mg capsule PO SCH ×2 (08:18→20:59)
[2022-02-26] MEDS: linagliptin 5mg tablet PO SCH (08:18)
[2022-02-26] MEDS: atorvastatin 20mg tablet PO SCH (08:18)
[2022-02-26] MEDS: loratadine/pseudoephedrine TAB.SR.12Hour PO SCH ×2 (08:18→20:00)
[2022-02-26] MEDS: metroNIDAZOLE 500mg tablet PO SCH ×3 (08:18→20:58)
[2022-02-26] MEDS: losartan 50mg tablet PO SCH (08:18)
[2022-02-26] MEDS: pantoprazole 40mg Tablet.DR PO SCH (08:18)
[2022-02-26] MEDS: atenolol 50mg tablet PO SCH (08:19)
[2022-02-26] MEDS: baclofen 10mg tablet PO SCH ×2 (08:19→20:59)
[2022-02-26] MEDS: heparin, porcine 5000 units/ml vial SQ SCH ×2 (08:19→20:58)
[2022-02-26] MEDS: JUVEN Smoothie Arginine/Glut./Ca2+Bmb (Juven 19.3pkt) 240ml cup PO SCH ×2 (08:20→17:30)
[2022-02-26] MEDS: nystatin 15 GM powder TP SCH ×2 (08:20→21:00)
[2022-02-26] MEDS: Dakins solution (1/4 strength) 473ml solution TP SCH ×2 (08:20→21:01)
[2022-02-26] MEDS: HYDROcodone/acetaminophen 10/325mg tab PO PRN ×3 (10:03→19:34)
[2022-02-26] MEDS: ciprofloxacin 250mg tablet PO SCH ×2 (10:03→21:44)
[2022-02-26 11:00] VITALS: BP 138/72
--- NOTE | 2022-02-26 14:28 | NUR ---
Patient refused afternoon humalog
[2022-02-26 15:00] VITALS: BP 139/66
[2022-02-26 18:00] VITALS: BP 116/65
--- NOTE | 2022-02-26 18:09 | NUR ---
Problems reprioritized. Patient report given, questions answered & plan of care reviewed with Jenaro FRANCO. Patient resting in bed in no acute distress.
--- NOTE | 2022-02-26 18:30 | NUR ---
Patient in room PCU 3013. I have received report from lt and had the opportunity to ask questions and assume patient care.
--- NOTE | 2022-02-26 19:00 | NUR ---
pt refused humalog for dinner food and correction
[2022-02-26] MEDS: insulin glargine (Lantus) pen - multi-dose SQ SCH (20:55)
[2022-02-26] MEDS: tamsulosin 0.4mg capsule PO SCH (20:59)
[2022-02-26] MEDS ORDERED: VANCOMYCIN LEVEL IV ONE (23:30)
[2022-02-27] MEDS: HYDROcodone/acetaminophen 10/325mg tab PO PRN ×4 (00:14→19:08)
[2022-02-27] MEDS: VANCOmycin 1250MG/NS 250ml Bag 250 ML IV SCH (01:42)
[2022-02-27 02:00] VITALS: BP 137/62
[2022-02-27 06:00] VITALS: BP 125/71
--- NOTE | 2022-02-27 06:44 | NUR ---
Problems reprioritized. Patient report given, questions answered & plan of care reviewed with carri.
--- NOTE | 2022-02-27 06:55 | NUR ---
Patient in room PCU 3013. I have received report from Jenaro FRANCO and had the opportunity to ask questions and assume patient care.
[2022-02-27] MEDS: JUVEN Smoothie Arginine/Glut./Ca2+Bmb (Juven 19.3pkt) 240ml cup PO SCH ×2 (07:30→18:01)
[2022-02-27] MEDS: nystatin 15 GM powder TP SCH ×2 (08:00→20:00)
[2022-02-27] MEDS: Dakins solution (1/4 strength) 473ml solution TP SCH ×2 (08:00→20:00)
[2022-02-27] MEDS: K and/or MAG REPLACEMENT MC SCH ×2 (08:00→20:00)
[2022-02-27] MEDS: ondansetron/PF 4mg/2ml inj IV PRN (08:16)
[2022-02-27] MEDS: loratadine/pseudoephedrine TAB.SR.12Hour PO SCH ×2 (09:14→20:00)
[2022-02-27] MEDS: docusate sod 100mg capsule PO SCH ×2 (09:14→21:47)
[2022-02-27] MEDS: losartan 50mg tablet PO SCH (09:15)
[2022-02-27] MEDS: baclofen 10mg tablet PO SCH ×2 (09:15→21:47)
[2022-02-27] MEDS: metroNIDAZOLE 500mg tablet PO SCH ×3 (09:15→21:47)
[2022-02-27] MEDS: linagliptin 5mg tablet PO SCH (09:16)
[2022-02-27] MEDS: atorvastatin 20mg tablet PO SCH (09:16)
[2022-02-27] MEDS: pantoprazole 40mg Tablet.DR PO SCH (09:16)
[2022-02-27] MEDS: atenolol 50mg tablet PO SCH (09:16)
[2022-02-27] MEDS: heparin, porcine 5000 units/ml vial SQ SCH ×2 (09:18→21:48)
[2022-02-27] MEDS: HYDROmorphone inj. 0.5 MG/0.5 ML DISP.SYRIN IV PRN (11:17)
[2022-02-27] MEDS: ciprofloxacin 250mg tablet PO SCH ×2 (14:09→21:47)
[2022-02-27] MEDS: DAPTOmycin inj. 500 MG in normal saline 100ml IV soln 100 ML IV SCH (14:11)
[2022-02-27 16:23] VITALS: BP 117/69
--- NOTE | 2022-02-27 17:45 | NUR ---
Charting by Barrett PATRICIA reviewed by Yolanda Aparicio RN
[2022-02-27 18:00] VITALS: BP 135/64
--- NOTE | 2022-02-27 18:10 | NUR ---
Problems reprioritized. Patient report given, questions answered & plan of care reviewed with Jenaro FRANCO.
--- NOTE | 2022-02-27 18:30 | NUR ---
Patient in room [facility] 3013. I have received report from carri and had the opportunity to ask questions and assume patient care.
[2022-02-27] MEDS: insulin glargine (Lantus) pen - multi-dose SQ SCH (21:43)
[2022-02-27] MEDS: tamsulosin 0.4mg capsule PO SCH (21:47)
[2022-02-28] MEDS: HYDROcodone/acetaminophen 10/325mg tab PO PRN ×2 (01:32→07:59)
[2022-02-28 02:00] VITALS: BP 144/64
[2022-02-28 06:00] VITALS: BP 119/79
--- NOTE | 2022-02-28 06:13 | NUR ---
Problems reprioritized. Patient report given, questions answered & plan of care reviewed with carri.
--- NOTE | 2022-02-28 06:49 | NUR ---
Patient in room [facility] 3013. I have received report from Jenaro Ivey and had the opportunity to ask questions and assume patient care. Addendum: 02/28/22 at 0651 by Mary Carpenter RN Jenaro Ivey
[2022-02-28] MEDS: normal saline 1000ml 1,000 ML IV SCH (07:13)
[2022-02-28] MEDS: JUVEN Smoothie Arginine/Glut./Ca2+Bmb (Juven 19.3pkt) 240ml cup PO SCH (07:14)
[2022-02-28] MEDS: docusate sod 100mg capsule PO SCH (07:59)
[2022-02-28] MEDS: atenolol 50mg tablet PO SCH (07:59)
[2022-02-28] MEDS: atorvastatin 20mg tablet PO SCH (08:00)
[2022-02-28] MEDS: linagliptin 5mg tablet PO SCH (08:00)
[2022-02-28] MEDS: baclofen 10mg tablet PO SCH (08:00)
[2022-02-28] MEDS: losartan 50mg tablet PO SCH (08:00)
[2022-02-28] MEDS: metroNIDAZOLE 500mg tablet PO SCH ×2 (08:00→12:57)
[2022-02-28] MEDS: K and/or MAG REPLACEMENT MC SCH (08:00)
[2022-02-28] MEDS: heparin, porcine 5000 units/ml vial SQ SCH (08:01)
[2022-02-28] MEDS: loratadine/pseudoephedrine TAB.SR.12Hour PO SCH (08:01)
[2022-02-28] MEDS: pantoprazole 40mg Tablet.DR PO SCH (08:01)
[2022-02-28] MEDS: DAPTOmycin inj. 500 MG in normal saline 100ml IV soln 100 ML IV SCH (10:13)
[2022-02-28] MEDS: ciprofloxacin 250mg tablet PO SCH (11:19)
[2022-02-28] MEDS: nystatin 15 GM powder TP SCH (11:24)
[2022-02-28 11:47] VITALS: BP 108/52
--- NOTE | 2022-02-28 11:54 | NUR ---
Pt glucose 153, patient refusing humalog, primary nurse informed
--- NOTE | 2022-02-28 12:30 | NUR ---
Student Medication Administration: For this medication-pass time frame, all medication were reviewed, dispensed, administered and documented per hospital policy by Gustavo SMITH, verified by SRINIVASA Ortiz Student documentation: I have reviewed and agree with all interventions, assessments performed and documented by SN Shawna.
[2022-02-28 16:00] VITALS: BP 108/60
[2022-02-28] MEDS: HYDROmorphone inj. 0.5 MG/0.5 ML DISP.SYRIN IV PRN (16:24)
[2022-02-28] MEDS: Dakins solution (1/4 strength) 473ml solution TP SCH (16:59)
--- NOTE | 2022-02-28 17:47 | NUR ---
Charting by Nina PATRICIA reviewed by Yolanda Aparicio RN
--- NOTE | 2022-03-04 12:35 | NUR ---
PATIENT WAS BROUGHT TO HOSPITAL VIA TRANSPORT TO HAVE PICC LINE PLACED. DR. BURGESS ORDERED PICC AND SIGNED CONSENT, PATIENT WAS CONSENTED IN ROOM, PICC LINE WAS PLACED AND CASE [facility]NAG[facility] WAS CONTACTED TO ARRANGE TRANSPORT BACK TO FACILITY.
== END 2022-02-28 17:58 | DRG 853 ==
LOC: ER 20:21 → ED HOLD 02-06 00:05 → PCU 3S 02-06 08:20
PROVIDERS: ADMIT Internal Medicine; ATTEND Family Medicine
PROC: BW211ZZ Computerized Tomography (CT Scan) of Abdomen and Pelvis using Low Osmolar Contrast (ICD-10-PCS; 2022-02-05)
PROC: 0QBS0ZZ Excision of Coccyx, Open Approach (ICD-10-PCS; 2022-02-06)
PROC: 0D1N0Z4 Bypass Sigmoid Colon to Cutaneous, Open Approach (ICD-10-PCS; principal; 2022-02-06 20:17)
DX: A41.9 Sepsis, unspecified organism (principal); L89.154 Pressure ulcer of sacral region, stage 4; E87.2 Acidosis; G81.94 Hemiplegia, unspecified affecting left nondominant side; L03.317 Cellulitis of buttock; G82.20 Paraplegia, unspecified; M46.28 Osteomyelitis of vertebra, sacral and sacrococcygeal region; K61.1 Rectal abscess; E11.42 Type 2 diabetes mellitus with diabetic polyneuropathy; G47.33 Obstructive sleep apnea (adult) (pediatric); K21.9 Gastro-esophageal reflux disease without esophagitis; L89.150 Pressure ulcer of sacral region, unstageable; M54.9 Dorsalgia, unspecified; Z20.822 Contact with and (suspected) exposure to COVID-19; B96.5 Pseudomonas (aeruginosa) (mallei) (pseudomallei) as the cause of diseases classified elsewhere; R19.7 Diarrhea, unspecified; E11.69 Type 2 diabetes mellitus with other specified complication; E87.6 Hypokalemia; B95.2 Enterococcus as the cause of diseases classified elsewhere; I10 Essential (primary) hypertension; K62.89 Other specified diseases of anus and rectum; R32 Unspecified urinary incontinence; Z79.84 Long term (current) use of oral hypoglycemic drugs; Z79.899 Other long term (current) drug therapy; Z89.511 Acquired absence of right leg below knee; Z59.02 Unsheltered homelessness; Z99.3 Dependence on wheelchair; Z88.8 Allergy status to other drugs, medicaments and biological substances
CPT/HCPCS: 36415; 71045; 74177; 80047; 80048; 80053; 80202; 80305; 81001; 81003; 82948; 83036; 83605; 83735; 84100; 84132; 84145; 85025; 85610; 87040; 87070; 87077; 87081; 87186; 87635; 93005; 97110; 97162; 97530; 97535; 99285; A4349; A4371; A4421; A4618; A4649; A5200; A6196; A6212; A6213; A6250; A6253; A6258; A6446; A6449; A7000; C1758; G0378; J0696; J0878; J1170; J1644; J1815; J2175; J2250; J2270; J2405; J2543; J2704; J3010; J3370; J3475; J3480; J3490; J7030; J7040; J7042; J7070; J7120; Q9967

== ENCOUNTER 2023-05-15 20:00 | Emergency (ER) | payer OTHER, MEDICAID ==
[~2023-05-15] VITALS: Ht 175.3 cm; Wt 90.0 kg
[~2023-05-15 20:00] MED LIST changes: +ACET-1008 PO; +ASCO500C18 PO; +ATOR10TA70 PO; +BACL20TA PO; -CEPH-268 PO; +DOCU-149 PO; +FLO0.4C PO; +HUMALOG SS; +HYDR-3973 PO; +INSU100V56 SUBCUT; +LORA10CA PO; +LOSA-416 PO; -LOSA50TA3 PO; +MAG-154 PO; +MAGN400O6 PO; +ZINC100T2 PO; +[UNRECOGNIZED DRUG - CODE] PO; +[UNRECOGNIZED DRUG - OTHER] IM
[2023-05-15 21:04] LABS: MONOCYTES # (AUTO) 0.7 X10'3 (0-0.9)
[2023-05-15 21:05] LABS: BASOPHILS # (AUTO) 0.1 X10'3 (0-0.2); BASOPHILS % (AUTO) 0.5 % (0-1); EOSINOPHILS % (AUTO) 0.2 % (0-6); HEMATOCRIT 41.7 % (42.0-52.0); HEMOGLOBIN 14.2 g/dl (14.0-17.9); LYMPHOCYTES % (AUTO) 12.8 % (21-51); MEAN CORPUSCULAR HGB CONC 34.1 g/dL (33.0-36.5); MONOCYTES % (AUTO) 4.4 % (2-12); NEUTROPHILS # (AUTO) 12.7 X10'3 (1.8-7.7); NEUTROPHILS % (AUTO) 82.1 % (42-75); PLATELET COUNT 337 X10'3 (140-440); RED BLOOD COUNT 4.74 X10'6 (4.70-6.10); WHITE BLOOD COUNT 15.5 X10'3 (4.5-11.0)
[2023-05-15 21:08] LABS: ANION GAP 10 (8-16); BLOOD UREA NITROGEN 15 MG/DL (7-18); BUN/CREATININE RATIO 21.4 (10.0-20.0); CHLORIDE 96 MMOL/L (99-107); GLUCOSE 252 MG/DL (70-104); POTASSIUM 3.9 MMOL/L (3.5-5.1); SODIUM 130 MMOL/L (135-145); TOTAL CARBON DIOXIDE 24.2 MMOL/L (24-32)
[2023-05-15 21:09] LABS: ALANINE AMINOTRANSFERASE 47 U/L (12-78); ALBUMIN 3.9 G/DL (3.4-5.0); ALBUMIN/GLOBULIN RATIO 0.9 (1.1-1.5); ALKALINE PHOSPHATASE 109 IU/L (46-116); ASPARTATE AMINO TRANSFERASE 16 U/L (10-37); BILIRUBIN,TOTAL 0.4 MG/DL (0.1-1.0); CALCIUM 9.1 MG/DL (8.5-10.1); LIPASE 39 U/L (16-77); TOTAL PROTEIN 8.3 G/DL (6.4-8.2); eCRCL 116 ML/MIN; eGFR > 90 ML/MIN
[2023-05-15] MEDS ORDERED: normal saline 1000ml 1,000 ML IV ONE (22:20)
[2023-05-15] MEDS ORDERED: iohexol 300mg/ml 100ml inj. ONE (22:20)
[2023-05-16] MEDS ORDERED: POLY119P2 PO (03:07)
[2023-05-16 03:14] VITALS: TEMP 97.8
[2023-05-16 09:10] VITALS: BP 166/85; PULSE 102; RESP 17; O2SAT 97
== END 2023-05-16 11:45 | disposition home or self-care (01) ==
LOC: ER 20:01
DX: K59.00 Constipation, unspecified (principal); E11.9 Type 2 diabetes mellitus without complications; Z88.6 Allergy status to analgesic agent; Z88.8 Allergy status to other drugs, medicaments and biological substances; Z79.899 Other long term (current) drug therapy; Z79.1 Long term (current) use of non-steroidal anti-inflammatories (NSAID); Z79.2 Long term (current) use of antibiotics
CPT/HCPCS: 36415; 74177; 80053; 83690; 84145; 85025; 96360; 99285; J3490; J7030; Q9967

== ENCOUNTER 2024-09-20 14:11 | Emergency (ER) | payer MEDICARE, MEDICAID ==
[~2024-09-20] VITALS: Ht 175.3 cm; Wt 88.0 kg
[~2024-09-20 14:11] MED LIST changes: -FLO0.4C PO; +POLY119P2 PO; +TAMS-55 PO
[2024-09-20 23:14] LABS: BASOPHILS # (AUTO) 0.1 X10'3 (0-0.2); BASOPHILS % (AUTO) 0.9 % (0-1); EOSINOPHILS # (AUTO) 0.4 X10'3 (0-0.9); EOSINOPHILS % (AUTO) 4.2 % (0-6); HEMATOCRIT 44.9 % (42.0-52.0); HEMOGLOBIN 15.3 g/dl (14.0-17.9); LYMPHOCYTES # (AUTO) 2.4 X10'3 (1.1-4.8); LYMPHOCYTES % (AUTO) 25.6 % (21-51); MEAN CORPUSCULAR HEMOGLOBIN 29.8 PG (27.0-31.0); MEAN CORPUSCULAR HGB CONC 34.1 g/dL (33.0-36.5); MEAN CORPUSCULAR VOLUME 87.3 FL (78-98); MONOCYTES # (AUTO) 0.7 X10'3 (0-0.9); MONOCYTES % (AUTO) 7.7 % (2-12); NEUTROPHILS # (AUTO) 5.7 X10'3 (1.8-7.7); NEUTROPHILS % (AUTO) 61.6 % (42-75); PLATELET COUNT 285 X10'3 (140-440); RED BLOOD COUNT 5.14 X10'6 (4.70-6.10); WHITE BLOOD COUNT 9.3 X10'3 (4.5-11.0)
[2024-09-20 23:28] LABS: ALANINE AMINOTRANSFERASE 28 U/L (12-78); ALBUMIN 3.8 G/DL (3.4-5.0); ALKALINE PHOSPHATASE 75 IU/L (46-116); ANION GAP 8 (8-16); ASPARTATE AMINO TRANSFERASE 11 U/L (10-37); BILIRUBIN,TOTAL 0.4 MG/DL (0.1-1.0); BLOOD UREA NITROGEN 13 MG/DL (7-18); CALCIUM 8.9 MG/DL (8.5-10.1); CHLORIDE 107 MMOL/L (99-107); CREATININE 0.65 MG/DL (0.60-1.10); GLUCOSE 249 MG/DL (70-104); POTASSIUM 3.6 MMOL/L (3.5-5.1); SODIUM 141 MMOL/L (135-145); TOTAL CARBON DIOXIDE 26.1 MMOL/L (24-32); TOTAL PROTEIN 7.5 G/DL (6.4-8.2); eCRCL 124 ML/MIN; eGFR > 90 ML/MIN
[2024-09-21 00:04] LABS: BILIRUBIN,URINE NEGATIVE (Neg); CLARITY,URINE CLEAR (Clear); COLOR,URINE YELLOW (Yellow); GLUCOSE, URINE >=1000 mg/dl (Neg); KETONES,URINE 40 mg/dl (Neg); LEUKOCYTE ESTERASE ,URINE NEGATIVE (Neg); NITRITES, URINE NEGATIVE (Neg); OCCULT BLOOD,URINE NEGATIVE (Neg); PH,URINE 5.5 (4.8-8.0); PROTEIN,URINE NEGATIVE (Neg); UROBILINOGEN,URINE 0.2 E.U/dL (0.2-1.0)
[2024-09-21 00:14] LABS: UA COLLECTION TYPE STRAIGHT CATH
[2024-09-21 00:15] LABS: BACTERIA,URINE FEW /HPF (Neg); RBC,URINE NONE SEEN /HPF (0-2); SQUAMOUS EPITHELIAL CELL,UR NONE SEEN /LPF (FEW); WBC,URINE 0-4 /HPF (0-4)
[2024-09-21] MEDS: acetaminophen 325mg tablet PO PRN (11:34)
[2024-09-21] MEDS ORDERED: GLIM4TAB7 PO (12:27)
[2024-09-21] MEDS ORDERED: SITA100T15 PO (12:27)
[2024-09-21] MEDS ORDERED: METO-384 PO (12:27)
[2024-09-21] MEDS ORDERED: TAMS-55 PO (12:27)
[2024-09-21] MEDS ORDERED: LANS30CA37 PO (12:27)
[2024-09-21] MEDS ORDERED: AMLO2.5T2 PO (12:27)
[2024-09-21] MEDS ORDERED: BACL20TA PO (12:27)
[2024-09-21] MEDS ORDERED: LOSA-415 PO (12:27)
[2024-09-21] MEDS ORDERED: SPIR25TA5 PO (12:27)
[2024-09-21] MEDS ORDERED: EMPA25TA PO (12:27)
[2024-09-21] MEDS: baclofen 10mg tablet PO SCH (16:39)
[2024-09-21] MEDS ORDERED: DEXTROSE 15 GM of carb/4 tabs (each vial/BOTTLE has 4 tablets) PO PRN ×2 (18:15)
[2024-09-21] MEDS ORDERED: dextrose 50%-water 50ml dispensing syringe IV PRN ×2 (18:15)
[2024-09-21] MEDS ORDERED: glucagon, human recombinant 1mg kit SUBCUT PRN (18:15)
[2024-09-21 19:16] LABS: HEMOGLOBIN A1C 8.4 % (4.5-6.2)
[2024-09-21] MEDS ORDERED: non-formulary drug (Omeprazole 2 CAP) PO SCH (20:00)
[2024-09-21] MEDS: INSULIN LISPRO 100 UNIT/ML INSULN.PEN MULTI-DOSE SQ SCH (20:32)
[2024-09-21] MEDS: insulin glargine (Lantus) pen - multi-dose SQ SCH (20:34)
[2024-09-21] MEDS: EMPAGLIFLOZIN 25 MG TABLET PO SCH (20:40)
[2024-09-21] MEDS: HYDROcodone/acetaminophen 10/325mg tab PO PRN (20:40)
[2024-09-22] MEDS ORDERED: non-formulary drug (Sitagliptin Phosphate* (Januvia*) 1 TAB) PO SCH (08:00)
[2024-09-22] MEDS: insulin glargine (Lantus) pen - multi-dose SQ SCH (08:23)
[2024-09-22] MEDS: pantoprazole 40mg Tablet.DR PO SCH (08:24)
[2024-09-22] MEDS: amLODIPine 5mg tablet PO SCH (08:25)
[2024-09-22] MEDS: losartan 50mg tablet PO SCH (08:26)
[2024-09-22] MEDS: tamsulosin 0.4mg capsule PO SCH (08:27)
[2024-09-22] MEDS: metoprolol succinate 25mg (24-HOUR) SR. Tablet PO SCH (08:31)
[2024-09-22] MEDS: nystatin 15 GM powder TP SCH (08:44)
[2024-09-22] MEDS: spironolactone 25 MG tablet PO SCH (08:48)
[2024-09-23 07:57] VITALS: TEMP 98
[2024-09-23 21:18] VITALS: BP 134/74; PULSE 87; RESP 16; O2SAT 98
[2024-09-24] MEDS ORDERED: HYDR-3965 PO (18:47)
== END 2024-09-23 21:26 | disposition home or self-care (01) ==
LOC: ER 14:12
DX: L89.899 Pressure ulcer of other site, unspecified stage (principal); E11.9 Type 2 diabetes mellitus without complications; Z59.00 Homelessness unspecified
CPT/HCPCS: 36415; 80053; 81001; 82948; 83036; 85025; 96372; 97110; 97530; 99285; A6590; J1815; 81003

== ENCOUNTER 2024-09-24 12:39 | Emergency (ER) | payer MEDICARE, MEDICAID ==
[~2024-09-24] VITALS: Ht 175.3 cm; Wt 98.0 kg
[~2024-09-24 12:39] MED LIST changes: -ACET-1008 PO; +AMLO2.5T2 PO; -ASCO500C18 PO; -ATEN25TA PO; -ATOR10TA70 PO; -DOCU-149 PO; +EMPA25TA PO; -GLIM4TAB PO; +GLIM4TAB7 PO; -HYDR-3973 PO; -INSU100V56 SUBCUT; +LANS30CA37 PO; -LORA10CA PO; +LOSA-415 PO; -LOSA-416 PO; -MAG-154 PO; -MAGN400O6 PO; +METO-384 PO; -POLY119P2 PO; +SITA100T15 PO; -SITA50TA PO; +SPIR25TA5 PO; -ZINC100T2 PO; -[UNRECOGNIZED DRUG - CODE] PO; -[UNRECOGNIZED DRUG - OTHER] IM
[2024-09-24] MEDS ORDERED: HYDR-3965 PO (18:47)
[2024-09-24] MEDS: HYDROcodone/acetaminophen 10/325mg tab PO ONE (19:30)
[2024-09-24] MEDS: amLODIPine 2.5mg tablet PO ONE (19:31)
[2024-09-25] MEDS: HYDROcodone/acetaminophen 10/325mg tab PO ONE ×2 (08:58→14:06)
[2024-09-25] MEDS: acetaminophen 325mg tablet PO ONE ×2 (20:20→21:54)
[2024-09-26] MEDS: HYDROcodone/acetaminophen 10/325mg tab PO ONE ×2 (02:56→10:55)
[2024-09-26] MEDS: baclofen 10mg tablet PO SCH (17:24)
[2024-09-26] MEDS ORDERED: non-formulary drug (Omeprazole 2 CAP) PO SCH (20:00)
[2024-09-26] MEDS: HYDROcodone/acetaminophen 10/325mg tab PO PRN (22:03)
[2024-09-27] MEDS: tamsulosin 0.4mg capsule PO SCH (09:25)
[2024-09-27] MEDS: losartan 50mg tablet PO SCH (09:26)
[2024-09-27] MEDS: metoprolol succinate 25mg (24-HOUR) SR. Tablet PO SCH (09:26)
[2024-09-27] MEDS: EMPAGLIFLOZIN 25 MG TABLET PO SCH (09:27)
[2024-09-27] MEDS: spironolactone 25 MG tablet PO SCH (09:28)
[2024-09-27] MEDS: amLODIPine 5mg tablet PO SCH (09:28)
[2024-09-27] MEDS: pantoprazole 40mg Tablet.DR PO SCH (09:29)
[2024-09-27] MEDS: linagliptin 5mg tablet PO SCH (09:37)
[2024-09-27] MEDS: polyethylene glycol 3350 17gm powd pack PO SCH ×2 (16:27→21:02)
[2024-09-28 00:14] VITALS: TEMP 98.6
[2024-09-28 20:19] VITALS: BP_DIAS 79; RESP 17; O2SAT 96
[2024-09-29 08:58] VITALS: BP_SYST 144; PULSE 103
== END 2024-09-29 12:23 ==
LOC: ER 12:40
DX: Z73.6 Limitation of activities due to disability (principal); E11.9 Type 2 diabetes mellitus without complications
CPT/HCPCS: 82948; 99285